=== PATIENT | male | born 1960 | race Caucasian/White ===

== ENCOUNTER → 2019-08-22 | Outpatient (REF) | payer OTHER ==
[2019-08-22 15:22] LABS: BASO # 0.1 10^3/uL (0.0-0.2); BASO % 0.9 % (0.0-1.0); EOS # 0.2 10^3/uL (0.0-0.5); EOS % 2.7 % (0.0-3.0); HEMATOCRIT 48.9 % (42.0-52.0); HEMOGLOBIN 15.8 g/dl (13.5-17.5); LYMPH # 1.8 10^3/uL (1.5-5.0); LYMPH % 31.9 % (24.0-44.0); MEAN CORPUSCULAR HEMOGLOBIN 28.4 pg (27.0-33.0); MEAN CORPUSCULAR HGB CONC 32.3 g/dl (32.0-36.5); MEAN CORPUSCULAR VOLUME 87.8 fl (80.0-96.0); MONO # 0.4 10^3/uL (0.0-0.8); MONO % 7.8 % (0.0-5.0); NEUTROPHILS # 3.2 10^3/uL (1.5-8.5); NEUTROPHILS % 55.8 % (36.0-66.0); PLATELET COUNT, AUTOMATED 301 10^3/uL (150-450); RED BLOOD COUNT 5.57 10^6/uL (4.30-6.10); WHITE BLOOD COUNT 5.7 10^3/uL (4.0-10.0)
[2019-08-22 15:37] LABS: HEMOGLOBIN A1c 5.8 %
[2019-08-22 16:03] LABS: ALBUMIN 4.1 GM/DL (3.2-5.2); ALT/SGPT 54 U/L (12-78); BILIRUBIN,TOTAL 0.5 MG/DL (0.2-1.0); BLOOD UREA NITROGEN 24 MG/DL (7-18); CALCIUM LEVEL 9.7 MG/DL (8.5-10.1); CARBON DIOXIDE LEVEL 26 MEQ/L (21-32); CHLORIDE LEVEL 106 MEQ/L (98-107); CHOLESTEROL LEVEL 220 MG/DL (<200); CHOLESTEROL RISK RATIO 5.641 (<5); GLOMERULAR FILTRATION RATE > 60.0 (>56); GLUCOSE, FASTING 107 MG/DL (70-100); HDL CHOLESTEROL 39 MG/DL (>40); LDL CHOLESTEROL 161 MG/DL (<100); NON-HDL-C 181 MG/DL; POTASSIUM SERUM 4.3 MEQ/L (3.5-5.1); SODIUM LEVEL 140 MEQ/L (136-145); THYROID STIMULATING HORMONE 0.763 uIU/ML (0.358-3.740); TOTAL 25(OH) VITAMIN D 22.4 NG/ML (30.0-100.0); TRIGLYCERIDES LEVEL 99 MG/DL (<150)
== END ==
LOC: M LAB REF 14:26
PROVIDERS: ATTEND Nurse Practitioner Family
DX: Z00.01 Encounter for general adult medical examination with abnormal findings (principal)

== ENCOUNTER 2019-09-16 07:47 | Day surgery (SDC) | payer OTHER ==
[~2019-09-16] VITALS: Ht 175.3 cm; Wt 110.1 kg
[~2019-09-16 07:47] MED LIST: LIDOCAINE 1% MDV 20ML VIAL SQ PRN; LR 1,000 ML IV ONE
[2019-09-16] MEDS ORDERED: PROPOFOL 200 MG/20 ML VIAL As Ordered ONE (08:27)
[2019-09-16] MEDS ORDERED: LIDOCAINE 2% INJ 100 MG/5 ML SDV (FOR ANES.) As Ordered ONE (08:27)
[2019-09-16] MEDS ORDERED: ROCURONIUM BROMIDE 50 MG/5 ML VIAL As Ordered ONE ×2 (08:27→10:24)
[2019-09-16] MEDS ORDERED: dexameTHASONE 4 MG/ML 1ML VIAL (J1100) As Ordered ONE (08:28)
[2019-09-16] MEDS ORDERED: ONDANSETRON 4MG/2ML VIAL (J2405) As Ordered ONE (08:28)
[2019-09-16] MEDS ORDERED: fentaNYL 100 MCG/2 ML INJECTION (J3010) As Ordered ONE ×2 (08:28→10:16)
[2019-09-16] MEDS ORDERED: MIDAZOLAM INJ 2 MG/2 ML VIAL (J2250) As Ordered ONE (08:28)
[2019-09-16] MEDS ORDERED: SUGAMMADEX SODIUM 500 MG/5 ML VIAL (BRIDION) As Ordered ONE (08:39)
[2019-09-16] MEDS ORDERED: BUPIVACAINE HCL 0.25% 30 ML VIAL As Ordered ONE (09:27)
[2019-09-16] MEDS: LR 1,000 ML IV SCH ×2 (11:47→12:06)
[2019-09-16] MEDS ORDERED: HYDROMORPHONE HCL 0.5 MG/ 0.5 ML SYRINGE (J1170 PER 1) IV PRN (12:00)
[2019-09-16] MEDS ORDERED: PERCOCET 5MG/325MG TAB PO PRN (12:00)
[2019-09-16] MEDS ORDERED: ONDANSETRON 4MG/2ML VIAL (J2405) IV PRN (12:00)
[2019-09-16] MEDS ORDERED: fentaNYL 100 MCG/2 ML INJECTION (J3010) IV PRN (12:00)
[2019-09-16] MEDS ORDERED: IBUPROFEN 600 MG TAB PO PRN (13:00)
[2019-09-16] MEDS ORDERED: ACETAMINOPHEN TAB 650MG DOSE (2X325MG) PO PRN (13:00)
[2019-09-16] MEDS ORDERED: NORCO, ANEXSIA 5/325MG TABLET (HYDROcodone/ACETAMINOPHEN) PO PRN (13:00)
[2019-09-16 13:35] VITALS: BP 120/69
--- NOTE | 2019-09-16 23:42 | RO ---
DATE OF PROCEDURE: 09/16/2019 PREOPERATIVE DIAGNOSIS: Epigastric ventral hernia. POSTOPERATIVE DIAGNOSIS: Epigastric ventral hernias. PROCEDURE PERFORMED: Robotic-assisted laparoscopic repair of ventral incisional hernia with mesh. SURGEON: Dr. Joe Hudson ODD JOB LABORER: BRIGIDA Carroll who assisted with trocar placement, management of robotic docking, instrument exchanges, placement of sutures and mesh, ,and ultimately closure of the incisions. ANESTHESIA: General. INDICATIONS FOR PROCEDURE: Patient is a 59-year-old man who has had a several year history anyway of an epigastric hernia. This is reducible but has become more uncomfortable. He is now for a robotic-assisted laparoscopic repair of his ventral hernia. DESCRIPTION OF PROCEDURE: The patient was brought to the operating room and placed on the table in a supine position. He was placed under general endotracheal anesthesia. The patient's abdomen was prepped and draped in a sterile fashion. 0.25% Marcaine was infiltrated at the trocar sites as needed. A short transverse left mid abdominal incision was made, and a Veress needle was inserted. After a positive hanging drop test, the abdomen was inflated with carbon dioxide gas. An 8 mm robotic port was placed over a 5 mm camera and advanced through the abdominal wall without difficulty. Initial examination showed normal appearing liver. There was some omentum adherent up into the area of his epigastric hernia. Two additional 8 mm trocars were placed on the left side of the abdomen. The patient cart was brought into position and the camera port was docked. Targeting took place and the additional ports were then docked as well. I proceeded using initially a Force bipolar and a cauterizing scissors. Initially the omentum was dissected away from the hernia defect. As this dissection proceeded, it became clear that the patient actually had two separate fascial defects with two small epigastric hernias. The one on the left was somewhat larger at approximately 1-1/2 to 2 cm in diameter and the defect to the right of the midline was approximately 1 to 1-1/2 cm in maximum diameter. Both contained some omental fat, which was partially incarcerated. Once the omentum had been freed into the abdomen, a flap of peritoneum and preperitoneal fat was elevated beginning on the left and working across. Both of the hernia sacs were freed and reduced into the abdomen. The two hernia defects were then closed with a running suture of #1-0 Stratafix. A 9 cm Parietex patch was then selected. This was reference code [id number] and lot number [id number]. This was inserted into the abdomen and placed into the preperitoneal space covering both defects very nicely. This was then sutured to the anterior abdominal wall using a #2-0 V-Loc around the circumference. This gave nice apposition of the mesh to the anterior abdominal wall. The peritoneal flap was then closed with a running suture of #2-0 V-Loc as well. The patient tolerated the procedure well without apparent complication. The abdomen was deflated after removal of the robotic instruments and the trocars were then removed. Lora Esquivel then moved to close the skin incisions with sutures and Steri-Strips. Light dressings were applied. The patient tolerated the procedure well. He was awakened in the operating room, extubated and moved to the recovery room in stable condition. Edited 09/16/2019 john
== END 2019-09-16 13:35 | disposition home or self-care (01) ==
LOC: M SDC 07:47
PROVIDERS: ATTEND Surgery
DX: K43.9 Ventral hernia without obstruction or gangrene (principal)
CPT/HCPCS: 49652; C1781; J1100; J2250; J2405; J3010

== ENCOUNTER → 2020-04-15 | Outpatient (CLI) | payer OTHER ==
--- NOTE | 2020-04-16 03:20 | REP ---
Clinical: Swelling. Technique: Real time mar scale and color evaluation using linear high frequency transducer. Findings: Ultrasound examination along the neck demonstrates few normal appearing lymph nodes measuring up to 9 x 6 x 7 mm on the right and 16 x 3 x 8 mm on the left. Impression: Normal bilateral lymph nodes. No significant swelling. Electronically Signed by Josue Crocker MD 04/16/2020 03:12 A
== END ==
LOC: M RAD 16:02
PROVIDERS: ATTEND Physician Assistant
DX: M79.89 Other specified soft tissue disorders (principal)

== ENCOUNTER → 2020-04-23 | Outpatient (REF) | payer OTHER, MEDICAID ==
[2020-04-23 12:32] LABS: BASO % 0.7 % (0.0-1.0); EOS # 0.2 10^3/uL (0.0-0.5); EOS % 3.8 % (0.0-3.0); HEMATOCRIT 46.4 % (42.0-52.0); HEMOGLOBIN 14.8 g/dl (13.5-17.5); LYMPH # 1.9 10^3/uL (1.5-5.0); LYMPH % 31.6 % (24.0-44.0); MEAN CORPUSCULAR HEMOGLOBIN 28.3 pg (27.0-33.0); MEAN CORPUSCULAR HGB CONC 31.9 g/dl (32.0-36.5); MEAN CORPUSCULAR VOLUME 88.7 fl (80.0-96.0); MONO # 0.5 10^3/uL (0.0-0.8); MONO % 8.8 % (0.0-5.0); NEUTROPHILS # 3.3 10^3/uL (1.5-8.5); NEUTROPHILS % 54.6 % (36.0-66.0); PLATELET COUNT, AUTOMATED 270 10^3/uL (150-450); RED BLOOD COUNT 5.23 10^6/uL (4.30-6.10)
[2020-04-23 12:40] LABS: ALBUMIN 3.8 GM/DL (3.2-5.2); ALT/SGPT 66 U/L (12-78); BILIRUBIN,TOTAL 0.6 MG/DL (0.2-1.0); BLOOD UREA NITROGEN 22 MG/DL (7-18); CARBON DIOXIDE LEVEL 26 MEQ/L (21-32); CHLORIDE LEVEL 107 MEQ/L (98-107); CHOLESTEROL LEVEL 178 MG/DL (<200); CHOLESTEROL RISK RATIO 5.085 (<5); CREATININE FOR GFR 0.69 MG/DL (0.70-1.30); FREE T4 0.94 NG/DL (0.76-1.46); GLOMERULAR FILTRATION RATE > 60.0 (>56); GLUCOSE, FASTING 97 MG/DL (70-100); HDL CHOLESTEROL 35 MG/DL (>40); LDL CHOLESTEROL 121 MG/DL (<100); NON-HDL-C 143 MG/DL; POTASSIUM SERUM 4.1 MEQ/L (3.5-5.1); SODIUM LEVEL 139 MEQ/L (136-145); THYROID STIMULATING HORMONE 0.823 uIU/ML (0.358-3.740); TOTAL PROTEIN 7.2 GM/DL (6.4-8.2); TRIGLYCERIDES LEVEL 111 MG/DL (<150)
[2020-04-23 13:20] LABS: HEMOGLOBIN A1c 6.1 %
== END ==
LOC: M LAB REF 12:04
PROVIDERS: ATTEND Physician Assistant
DX: Z68.41 Body mass index [BMI] 40.0-44.9, adult (principal); E66.01 Morbid (severe) obesity due to excess calories; E78.5 Hyperlipidemia, unspecified; R73.03 Prediabetes

== ENCOUNTER → 2020-09-30 | Outpatient (REF) | payer OTHER, MEDICAID ==
[2020-09-30 13:13] LABS: BASO # 0.1 10^3/uL (0.0-0.2); BASO % 0.8 % (0.0-1.0); EOS # 0.2 10^3/uL (0.0-0.5); EOS % 2.6 % (0.0-3.0); HEMATOCRIT 48.4 % (42.0-52.0); HEMOGLOBIN 15.1 g/dl (13.5-17.5); LYMPH % 32.3 % (24.0-44.0); MEAN CORPUSCULAR HEMOGLOBIN 27.7 pg (27.0-33.0); MEAN CORPUSCULAR HGB CONC 31.2 g/dl (32.0-36.5); MEAN CORPUSCULAR VOLUME 88.8 fl (80.0-96.0); MONO # 0.6 10^3/uL (0.0-0.8); MONO % 9.2 % (0.0-5.0); NEUTROPHILS # 3.3 10^3/uL (1.5-8.5); NEUTROPHILS % 54.4 % (36.0-66.0); PLATELET COUNT, AUTOMATED 282 10^3/uL (150-450); RED BLOOD COUNT 5.45 10^6/uL (4.30-6.10); WHITE BLOOD COUNT 6.1 10^3/uL (4.0-10.0)
[2020-09-30 13:46] LABS: ALBUMIN 3.8 GM/DL (3.2-5.2); ALT/SGPT 54 U/L (12-78); BILIRUBIN,TOTAL 0.4 MG/DL (0.2-1.0); BLOOD UREA NITROGEN 15 MG/DL (7-18); CALCIUM LEVEL 9.5 MG/DL (8.5-10.1); CARBON DIOXIDE LEVEL 29 MEQ/L (21-32); CHLORIDE LEVEL 105 MEQ/L (98-107); CHOLESTEROL LEVEL 221 MG/DL (<200); CHOLESTEROL RISK RATIO 6.138 (<5); GLOMERULAR FILTRATION RATE > 60.0 (>56); GLUCOSE, FASTING 88 MG/DL (70-100); HDL CHOLESTEROL 36 MG/DL (>40); LDL CHOLESTEROL 158 MG/DL (<100); NON-HDL-C 185 MG/DL; POTASSIUM SERUM 4.5 MEQ/L (3.5-5.1); PROSTATIC SPECIFIC AG MONITOR 1.32 NG/ML (< 4.00); SODIUM LEVEL 138 MEQ/L (136-145); TOTAL 25(OH) VITAMIN D 19.3 NG/ML (30.0-100.0); TOTAL PROTEIN 7.3 GM/DL (6.4-8.2); TRIGLYCERIDES LEVEL 137 MG/DL (<150)
[2020-09-30 16:31] LABS: HEMOGLOBIN A1c 5.5 %
== END ==
LOC: M LAB REF 12:19
PROVIDERS: ATTEND Nurse Practitioner Family
DX: E78.5 Hyperlipidemia, unspecified (principal); K92.1 Melena; R73.03 Prediabetes

== ENCOUNTER → 2020-11-21 | Outpatient (CLI) | payer OTHER, MEDICAID ==
[~2020-11-21] MED LIST changes: -LIDOCAINE 1% MDV 20ML VIAL SQ PRN; -LR 1,000 ML IV ONE; +VITA50005
== END ==
LOC: M LABSMTC 09:36
PROVIDERS: ATTEND Anesthesiology
DX: Z01.812 Encounter for preprocedural laboratory examination (principal); Z20.822 Contact with and (suspected) exposure to COVID-19

== ENCOUNTER 2020-11-26 07:29 | Day surgery (SDC) | payer OTHER ==
[~2020-11-26] VITALS: Ht 175.3 cm; Wt 109.2 kg
[~2020-11-26 07:29] MED LIST changes: +NS 1,000 ML IV ONE
--- OUTSIDE RECORDS SUMMARY | 2020-11-26 07:34 | CCD ---
Author Organization Unknown Address [address] [place] [id number] Phone [phone] Care Team Providers Care Polishing Machine Operator Helper Name Role Phone Siria Hare Unavailable Unavailable Allergies Code Code System Name Reaction Severity Status Onset NKDA Medications Name Status Start Date Stop Date mupirocin 2 % topical ointment APPLY A SMALL AMOUNT TO AFFECTED AREA S THREE TIMES A DAY Active Not available sulfamethoxazole 800 mg-trimethoprim 160 mg tablet TAKE ONE TABLET BY MOUTH EVERY 12 HOURS FOR 7 DAYS Completed 10/18/2020 Vitamin D2 1,250 mcg (50,000 unit) capsu le Take 1 capsule every week by oral route as directed. 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 History Finding of Body Mass Index Active 03/15/2020 Histo ry Melena Active 06/11/2020 History Cellulitis of Buttock Active 06/11/2020 History Screening Procedure Active 06/11/2020 History Vitamin D Deficiency Active 10/20/2020 Procedures Date Name Performed by 09/12/2019 Repair of Ventral Hernia Information not available Vasectomy Information not avai lable Tonsillectomy Information not avai lable Notes: Tonsillectomy, vasectomy, ventral hernia repair 09/2019 Results Lab Results Date Name Specimen Result Interpretation Description Value Range Status Address 09/30/2020 CBC W/ Auto Diff Normal White Blood Count 6.1 10 4.0-10.0 10 [facility]: [address] [facility] Normal Red Blood Count 5.45 10 4.30-6.10 10 [facility]: [address] [facility] Normal Hemoglobin 15.1 g/dL 13.5-17.5 g/dL [facility]: [address] [facility] Normal Hematocrit 48.4 % 42.0-52.0 % [facility]: [address] [facility] Normal Mean Corpuscular Volume 88.8 fL 80.0 -96.0 fL Final [facility]: [address] [place] [address] Normal Mean Corpuscular Hemoglobin 27.7 pg 27.0-33.0 pg Final [facility]: [address] [place] [address] Low Mean Corpuscular HGB Conc 31.2 g/dL 32.0-36.5 g/dL Final [facility]: [address] [place] [address] Normal Red Cell Distribution Width 13.4 % 1 1.5-14.5 % [facility]: [address] [place] [address] Normal Platelet Count, Automated 282 10 150 -450 10 [facility]: [address] [facility] Normal Neutrophils % 54.4 % 36.0-66.0 % [facility]: [address] [facility] Normal Lymph % 32.3 % 24.0-44.0 % Final [facility]: [address] [facility] High [place]kin % 9.2 % 0.0-5.0 % Final [facility]: [address] [facility] Normal Eos % 2.6 % 0.0-3.0 % [facility]: [address] [facility] Normal Baso % 0.8 % 0.0-1.0 % Final [facility]: [address] [facility] Normal Immature Granulocyte % 0.7 % 0-3.0 % [facility]: [address] [place] [address] Normal Nucleated Red Blood Cell % 0.0 % 0- 0 % [facility]: [address] [facility] Normal Neutrophils # 3.3 10 1.5-8.5 10 [facility]: [address] [facility] Normal Lymph # 2.0 10 1.5-5.0 10 [facility]: [address] [facility] Normal [place]kin # 0.6 10 0.0-0.8 10 Final [facility]: [address] [facility] Normal Eos # 0.2 10 0.0-0.5 10 [facility]: [address] [facility] Normal Baso # 0.1 10 0.0-0.2 10 [facility]: [address] [facility] 09/30/2020 CMP, Serum or Plasma Normal Glucose, Fastin g 88 mg/dL 70-100 mg/dL [facility]: [address] [facility] Normal Blood Urea Nitrogen 15 mg/dL 7-18 mg /dL [facility]: [address] [facility] Normal Creatinine for GFR 0.80 mg/dL 0.70-1 .30 mg/dL [facility]: [address] [facility] Normal Glomerular Filtration Rate > 60.0 >5 6 [facility]: [address] [facility] Normal Sodium Level 138 mEq/L 136-145 mEq/L [facility]: [address] [facility] Normal Potassium Serum 4.5 mEq/L 3.5-5.1 mE q/L [facility]: [address] [facility] Normal Chloride Level 105 mEq/L 98-107 mEq/ L [facility]: [address] [facility] Normal Carbon Dioxide Level 29 mEq/L 21-32 mEq/L [facility]: [address] [facility] Low Anion Gap 4 mEq/L 8-16 mEq/L [facility]: [address] [facility] Normal Calcium Level 9.5 mg/dL 8.5-10.1 mg/ dL [facility]: [address] [facility] Normal AST/SGOT 21 U/L 7-37 U/L [facility]: [address] [facility] Normal ALT/SGPT 54 U/L 12-78 U/L [facility]: [address] [facility] Normal Alkaline Phosphatase 67 U/L 45-117 U /L [facility]: [address] [facility] Normal Bilirubin,total 0.4 mg/dL 0.2-1.0 mg /dL [facility]: [address] [facility] Normal Total Protein 7.3 gm/dL 6.4-8.2 gm/d L [facility]: [address] [facility] Normal Albumin 3.8 gm/dL 3.2-5.2 gm/dL Nataliya l [facility]: [address] [facility] Normal Albumin/globulin Ratio 1.1 [facility]: [address] [facility] 09/30/2020 Lipid Panel, Blood Normal Triglycerides Lev el 137 mg/dL <150 mg/dL [facility]: [address] [facility] High Cholesterol Level 221 mg/dL <200 mg/ dL [facility]: [address] [facility] Low HDL Cholesterol 36 mg/dL >40 mg/dL [facility]: [address] [facility] High LDL Cholesterol 158 mg/dL <100 mg/dL [facility]: [address] [facility] Normal Non-hdl-c 185 mg/dL [facility]: [address] [facility] High Cholesterol Risk Ratio 6.138 <5 [facility]: [address] [facility] 09/30/2020 PSA, Serum or Plasma Normal Prostat ic Specific Ag Monitor 1.32 NG/mL < 4.00 NG/mL [facility]: [address] [facility] 09/30/2020 TSH + Free T4, Serum Normal Thyroid Stimulating Hormone 1.090 uIU/mL 0.358-3.740 uIU/mL [facility]: [address] [facility] Normal Free T4 1.00 NG/dL 0.76-1.46 NG/dL F [facility]: [address] [facility] 09/30/2020 Vitamin D, 25-Hydroxy, Total, Serum Low Total 25(Oh) Vitamin D 19.3 NG/mL 30.0-100.0 NG/mL [facility]: [address] [facility] 09/30/2020 HbA1C (Hemoglobin a1C), Blood Normal Hemogl obin a1C 5.5 % Final [facility]: [address] [facility] High Estimated Average Glucose 111 mg/dL 60-110 mg/dL Final [facility]: [address] [facility] Past Encounters 10/18/2020 Patient Asked to Attend; Hyperlipidemia; Vitamin D Deficiency Siria Hare [facility]: [address] [place] [phone], Ph. 09/30/2020 Patient Asked to Attend; Hyperlipidemia Frederick Lucio MD: [address] [place] [address], Ph. 09/09/2020 Abscess of Skin And/or Subcutaneous Tissue; Screening for Malignant Neoplasm of Colon; Hyperlipidemia; Adult Health Examination; Prediabetes; Melena; Impacted Cerumen of Bilateral Ears Siria Hare [facility]: [address] [place] [phone], Ph. Social History Tobacco Smoking Status Former Smoker Vaccine List Notes: Pt declined Flu vaccine Plan of Care Patient Instructions Please try to maintain healthy diet and physical activities. Please try to limit sugars carbohydrates, sodium and fats in your diet. Please try to avoid processed foods. please try to maintain adequate intake of water daily. Annual physical exam done today. labs o rdered, please return to have la bs done. Please fast for 8-10 hours prior. Reminders Provider Appointments None recorded. Lab None recorded. Referral None recorded. Procedures None recorded. Surgeries None recorded. Imaging None recorded. Vitals 10/18/2020 04:20PM ESTABLISHED [id number] Height Weight BMI Blood Pressure 69 in 243 lbs 35.9 kg/m2 124/83 mm[Hg] 09/09/2020 01:00PM ANNUAL EXAM Height Weight BMI Blood Pressure 69 in 239 lbs 4 oz 35.3 kg/m2 121/74 mm[Hg] 06/11/2020 Height Weight Blood Pressure 69 in 239 lbs 8 oz 133/79 mm[Hg] 03/15/2020 Height Weight Blood Pressure 69 in 249 lbs 3.2 oz 123/80 mm[Hg] 09/05/2019 Height Weight Blood Pressure 69 in 242 lbs 2.08 oz 136/89 mm[Hg] 08/05/2019 Height Weight Blood Pressure 69 in 244 lbs 130/73 mm[Hg]
--- OUTSIDE RECORDS SUMMARY | 2020-11-26 07:34 | CCD | Continuity of Care Document ---
Author Author [facility] Organization Unknown Address [address] [place] [address], [address] [place] [address] Phone [phone] Care Team Providers Care Sap Crm Developer Name Role Phone Mike Corcoran M.D. AUTM [phone] Flaquito Dixon AUTM [phone] Siria Hare AUTM Problems Description No Active Problems Social History Type Date Description Comments Sex Unknown ETOH Use Denies alcohol use Tobacco Use Start: Unknown End: Unknown Patient is a former smoker QUIT 1993 Recreational Drug Use Denies Drug Use Allergies, Adverse Reactions, Alerts Description No Known Drug Allergies Medications Active Medications SIG Qnty Indications Ordering Provide r Date Miralax 17GM/Scoop Powder use as instructed by doctor for bowel prep. 510gm Z12.11 Mike mora MD 10/20/[address] take 4 tabs by mouth prior to procedure per instructions. 4tabs Z12.11 Mike Mansfield MD 10/20/2020 Immunizations Description No Information Available Vital Signs Date Vital Result Comment 10/20/2020 1:27pm BP Systolic 130 mmHg BP Diastolic 84 mmHg Height 69 inches 5'9" Weight 241.00 lb BMI (Body Mass Index) 35.6 kg/m2 [place] Body Weight 160 lb Weight 109.318 kg BSA (Body Surface Area) 2.24 m2 09/29/2019 10:17am BP Systolic 122 mmHg BP Diastolic 84 mmHg Height 69 inches 5'9" Weight 238.56 lb BMI (Body Mass Index) 35.2 kg/m2 [place] Body Weight 160 lb Weight 108.212 kg BSA (Body Surface Area) 2.23 m2 Results Description No Information Available Procedures Description No Information Available Medical Devices Description No Information Available Encounters Description No Information Available Assessments Date Code Description Provider 10/20/2020 Z12.11 Encounter for screening for mary gnant neoplasm of colon SUZAN Matthew Plan of Treatment 10/20/2020 - Sommer Janina SUZAN Jimenez* Z12.11 Encounter for screening for malignant neoplasm of colon * * New Medication:* Miralax 17 GM/Scoop * Dulcolax 5 mg * New Orders:* Colonoscopy, Ordered: 10/20/20 * Comments:* Will arrange for colonoscopy. Reviewed risks and benefits of the procedure, as well as other options, with the patient. Bowel prep procedure was discussed with patient, as well as risks and side effects associated with the bowel prep. Patient verbalized understanding of all of the above and is in agreement to proceed. Patient will seek medical attention for any acute changes. Will monitor. * Follow up:* As scheduled, sooner if needed. Functional Status Description No Information Available Mental Status Description No Information Available Referrals Refer to Reason for Referral Status Appt Date Soto Santiago M.D. SCREENING FOR MALIGNANT CHARLIE PLASM OF COLON, HEMATOCHEZIA Scheduled 10/20/[address] [place] [address], [address] [place] [address] [phone]
--- OUTSIDE RECORDS SUMMARY | 2020-11-26 07:34 | CCD ---
Author Author [facility] Organization [facility] Address Unknown Phone Unavailable Care Team Providers Care Foreman Or Supervisor And Operator Name Role Phone Arpita Lucio MD Unavailable Unavailable Arpita Lucio MD Unavailable Unavailable Arpita Lucio MD Unavailable Unavailable Arpita Lucio MD Unavailable Unavailable Arpita Lucio MD Unavailable Unavailable Arpita Lucio MD Unavailable Unavailable Arpita Lucio MD Unavailable Unavailable Arpita Lucio MD Unavailable Unavailable Arpita Lucio MD Unavailable Unavailable Arpita Lucio MD Unavailable Unavailable Arpita Lucio MD Unavailable Unavailable Arpita Lucio MD Unavailable Unavailable Arpita Lucio MD Unavailable Unavailable Arpita Lucio MD Unavailable Unavailable Arpita Lucio MD Unavailable Unavailable Arpita Lucio MD Unavailable Unavailable Arpita Lucio MD Unavailable Unavailable Arpita Lucio MD Unavailable Unavailable Arpita Lucio MD Unavailable Unavailable Arpita Lucio MD Unavailable Unavailable Arpita Lucio MD Unavailable Unavailable Arpita Lucio MD Unavailable Unavailable Arpita Lucio MD Unavailable Unavailable Arpita Lucio MD Unavailable Unavailable Arpita Lucio MD Unavailable Unavailable Arpita Lucio MD Unavailable Unavailable Arpita Lucio MD Unavailable Unavailable Arpita Lucio MD Unavailable Unavailable Arpita Lucio MD Unavailable Unavailable Arpita Lucio MD Unavailable Unavailable Arpita Lucio MD Unavailable Unavailable Arpita Lucio MD Unavailable Unavailable Arpita Lucio MD Unavailable Unavailable Arpita Lucio MD Unavailable Unavailable Arpita Lucio MD Unavailable Unavailable Arpita Lucio MD Unavailable Unavailable Arpita Lucio MD Unavailable Unavailable Arpita Lucio MD Unavailable Unavailable Arpita Lucio MD Unavailable Unavailable Arpita Lucio MD Unavailable Unavailable Arpita Lucio MD Unavailable Unavailable Arpita Lucio MD Unavailable Unavailable Arpita Lucio MD Unavailable Unavailable Arpita Lucio MD Unavailable Unavailable Arpita Lucio MD Unavailable Unavailable Arpita Lucio MD Unavailable Unavailable Arpita Lucio MD Unavailable Unavailable Arpita Lucio MD Unavailable Unavailable Arpita Lucio MD Unavailable Unavailable Arpita Lucio MD Unavailable Unavailable Arpita Lucio MD Unavailable Unavailable Arpita Lucio MD Unavailable Unavailable Arpita Lucio MD Unavailable Unavailable Arpita Lucio MD Unavailable Unavailable Arpita Lucio MD Unavailable Unavailable Arpita Lucio MD Unavailable Unavailable Arpita Lucio MD Unavailable Unavailable Arpita Lucio MD Unavailable Unavailable Arpita Lucio MD Unavailable Unavailable Arpita Lucio MD Unavailable Unavailable Arpita Lucio MD Unavailable Unavailable Arpita Lucio MD Unavailable Unavailable Arpita Lucio MD Unavailable Unavailable Arpita Lucio MD Unavailable Unavailable Arpita Lucio MD Unavailable Unavailable Arpita Lucio MD Unavailable Unavailable Arpita Lucio MD Unavailable Unavailable Arpita Lucio MD Unavailable Unavailable Arpita Lucio MD Unavailable Unavailable Arpita Lucio MD Unavailable Unavailable Arpita Lucio MD Unavailable Unavailable Arpita Lucio MD Unavailable Unavailable Arpita Lucio MD Unavailable Unavailable Arpita Lucio MD Unavailable Unavailable Arpita Lucio MD Unavailable Unavailable Arpita Lucio MD Unavailable Unavailable Arpita Lucio MD Unavailable Unavailable Arpita Lucio MD Unavailable Unavailable Arpita Lucio MD Unavailable Unavailable Arpita Lucio MD Unavailable Unavailable Arpita Lucio MD Unavailable Unavailable Arpita Lucio MD Unavailable Unavailable Arpita Lucio MD Unavailable Unavailable Arpita Lucio MD Unavailable Unavailable Arpita Lucio MD Unavailable Unavailable Arpita Lucio MD Unavailable Unavailable Arpita Lucio MD Unavailable Unavailable Arpita Lucio MD Unavailable Unavailable Arpita Lucio MD Unavailable Unavailable Payam, A Siria VEGETABLE HARVEST MACHINE OPERATOR Unavailable Unavailable Payam, A Isria VEGETABLE HARVEST MACHINE OPERATOR Unavailable Unavailable Payam, A Siria VEGETABLE HARVEST MACHINE OPERATOR Unavailable Unavailable Payam, A Siria VEGETABLE HARVEST MACHINE OPERATOR Unavailable Unavailable Payam, A Siria VEGETABLE HARVEST MACHINE OPERATOR Unavailable Unavailable Payam, A Siria VEGETABLE HARVEST MACHINE OPERATOR Unavailable Unavailable Payam, A Siria VEGETABLE HARVEST MACHINE OPERATOR Unavailable Unavailable Payam, A Siria VEGETABLE HARVEST MACHINE OPERATOR Unavailable Unavailable Payam, A Siria VEGETABLE HARVEST MACHINE OPERATOR Unavailable Unavailable Payam, A Siria VEGETABLE HARVEST MACHINE OPERATOR Unavailable Unavailable Purvis, A Siria VEGETABLE HARVEST MACHINE OPERATOR Unavailable Unavailable Purvis, A Siria VEGETABLE HARVEST MACHINE OPERATOR Unavailable Unavailable Purvis, A Siria VEGETABLE HARVEST MACHINE OPERATOR Unavailable Unavailable Purvis, A Siria VEGETABLE HARVEST MACHINE OPERATOR Unavailable Unavailable Purvis, A Siria VEGETABLE HARVEST MACHINE OPERATOR Unavailable Unavailable Payam, A Siria VEGETABLE HARVEST MACHINE OPERATOR Unavailable Unavailable Payam, A Siria VEGETABLE HARVEST MACHINE OPERATOR Unavailable Unavailable Purvis, A Siria VEGETABLE HARVEST MACHINE OPERATOR Unavailable Unavailable Purvis, A Siria VEGETABLE HARVEST MACHINE OPERATOR Unavailable Unavailable Purvis, A Siria VEGETABLE HARVEST MACHINE OPERATOR Unavailable Unavailable Purvis, A Siria VEGETABLE HARVEST MACHINE OPERATOR Unavailable Unavailable Purvis, A Siria VEGETABLE HARVEST MACHINE OPERATOR Unavailable Unavailable Purvis, A Siria VEGETABLE HARVEST MACHINE OPERATOR Unavailable Unavailable Payam, A Siria VEGETABLE HARVEST MACHINE OPERATOR Unavailable Unavailable Payam, A Siria VEGETABLE HARVEST MACHINE OPERATOR Unavailable Unavailable Payam, A Siria VEGETABLE HARVEST MACHINE OPERATOR Unavailable Unavailable Payam, A Siria VEGETABLE HARVEST MACHINE OPERATOR Unavailable Unavailable Silveira, Roya VEGETABLE HARVEST MACHINE OPERATOR VEGETABLE HARVEST MACHINE OPERATOR Unavailable Unavailable Silveira, F Roya VEGETABLE HARVEST MACHINE OPERATOR-BC Unavailable Unavailable Silveira, F Roya VEGETABLE HARVEST MACHINE OPERATOR-BC Unavailable Unavailable Silveira, F Roya VEGETABLE HARVEST MACHINE OPERATOR-BC Unavailable Unavailable Silveira, F Roya VEGETABLE HARVEST MACHINE OPERATOR-BC Unavailable Unavailable Silveira, F Roya VEGETABLE HARVEST MACHINE OPERATOR-BC Unavailable Unavailable Silveira, F Roya VEGETABLE HARVEST MACHINE OPERATOR-BC Unavailable Unavailable Silveira, F Roya VEGETABLE HARVEST MACHINE OPERATOR-BC Unavailable Unavailable Silveira, F Roya VEGETABLE HARVEST MACHINE OPERATOR-BC Unavailable Unavailable Silveira, F Roya VEGETABLE HARVEST MACHINE OPERATOR-BC Unavailable Unavailable Silveira, F Roya VEGETABLE HARVEST MACHINE OPERATOR-BC Unavailable Unavailable Silveira, F Roya VEGETABLE HARVEST MACHINE OPERATOR-BC Unavailable Unavailable Silveira, F Roya VEGETABLE HARVEST MACHINE OPERATOR-BC Unavailable Unavailable Silveira, F Roya VEGETABLE HARVEST MACHINE OPERATOR-BC Unavailable Unavailable Silveira, F Roya VEGETABLE HARVEST MACHINE OPERATOR-BC Unavailable Unavailable Silveira, F Roya VEGETABLE HARVEST MACHINE OPERATOR-BC Unavailable Unavailable Silveira, F Roya VEGETABLE HARVEST MACHINE OPERATOR-BC Unavailable Unavailable Silveira, F Roya VEGETABLE HARVEST MACHINE OPERATOR-BC Unavailable Unavailable Silveira, F Roya VEGETABLE HARVEST MACHINE OPERATOR-BC Unavailable Unavailable Silveira, F Roya VEGETABLE HARVEST MACHINE OPERATOR-BC Unavailable Unavailable Silveira, F Roya VEGETABLE HARVEST MACHINE OPERATOR-BC Unavailable Unavailable Silveira, F Roya VEGETABLE HARVEST MACHINE OPERATOR-BC Unavailable Unavailable STEELE, YANICK FLAQUITO RPA-C Unavailable Unavailable STEELE, YANICK FLAQUITO RPA-C Unavailable Unavailable STEELE, YANICK FLAQUITO RPA-C Unavailable Unavailable STEELE, YANICK FLAQUITO RPA-C Unavailable Unavailable STEELE, YANICK FLAQUITO RPA-C Unavailable Unavailable STEELE, YANICK FLAQUITO RPA-C Unavailable Unavailable STEELE, YANICK FLAQUITO RPA-C Unavailable Unavailable STEELE, YANICK FLAQUITO RPA-C Unavailable Unavailable STEELE, YANICK FLAQUITO RPA-C Unavailable Unavailable STEELE, YANICK FLAQUITO RPA-C Unavailable Unavailable STEELE, YANICK FLAQUITO RPA-C Unavailable Unavailable STEELE, YANICK FLAQUITO RPA-C Unavailable Unavailable STEELE, YANICK FLAQUITO RPA-C Unavailable Unavailable STEELE, YANICK FLAQUITO RPA-C Unavailable Unavailable STEELE, YANICK FLAQUITO RPA-C Unavailable Unavailable STEELE, YANICK FLAQUITO RPA-C Unavailable Unavailable STEELE, YANICK FLAQUITO RPA-C Unavailable Unavailable STEELE, YANICK FLAQUITO RPA-C Unavailable Unavailable STEELE, YANICK FLAQUITO RPA-C Unavailable Unavailable STEELE, YANICK FLAQUITO RPA-C Unavailable Unavailable STEELE, YANICK FLAQUITO RPA-C Unavailable Unavailable STEELE, YANICK FLAQUITO RPA-C Unavailable Unavailable STEELE, YANICK FLAQUITO RPA-C Unavailable Unavailable STEELE, YANICK FLAQUITO RPA-C Unavailable Unavailable STEELE, YANICK FLAQUITO RPA-C Unavailable Unavailable STEELE, YANICK FLAQUITO RPA-C Unavailable Unavailable STEELE, YANICK FLAQUITO RPA-C Unavailable Unavailable STEELE, YANICK FLAQUITO RPA-C Unavailable Unavailable STEELE, YANICK FLAQUITO RPA-C Unavailable Unavailable STEELE, YANICK FLAQUITO RPA-C Unavailable Unavailable STEELE, YANICK FLAQUITO RPA-C Unavailable Unavailable STEELE, YANICK FLAQUITO RPA-C Unavailable Unavailable STEELE, YANICK FLAQUITO RPA-C Unavailable Unavailable STEELE, YANICK FLAQUITO RPA-C Unavailable Unavailable STEELE, YANICK FLAQUITO RPA-C Unavailable Unavailable STEELE, YANICK FLAQUITO RPA-C Unavailable Unavailable STEELE, YANICK FLAQUITO RPA-C Unavailable Unavailable STEELE, YANICK FLAQUITO RPA-C Unavailable Unavailable STEELE, YANICK FLAQUITO RPA-C Unavailable Unavailable [facility], [facility] STEE[facility] FLAQUITO Unavailable Unavailable Re-disclosure Warning The records that you are about to access may contain information from federally-assisted alcohol or drug abuse programs. If such information is present, then the following federally mandated warning applies: This information has been disclosed to you from records protected by federal confidentiality rules (42 CFR part 2). The federal rules prohibit you from making any further disclosure of this information unless further disclosure is expressly permitted by the written consent of the person to whom it pertains or as otherwise permitted by 42 CFR part 2. A general authorization for the release of medical or other information is NOT sufficient for this purpose. The Federal rules restrict any use of the information to criminally investigate or prosecute any alcohol or drug abuse patient.The records that you are about to access may contain highly sensitive health information, the redisclosure of which is protected by Article 27-F of the [facility] Public Health law. If you continue you may have access to information: Regarding HIV / AIDS; Provided by facilities licensed or operated by the [facility] Office of Mental Health; or Provided by the [facility] Office for People With Developmental Disabilities. If such information is present, then the following [facility] mandated warning applies: This information has been disclosed to you from confidential records which are protected by state law. State law prohibits you from making any further disclosure of this information without the specific written consent of the person to whom it pertains, or as otherwise permitted by law. Any unauthorized further disclosure in violation of state law may result in a fine or fdc sentence or both. A general authorization for the release of medical or other information is NOT sufficient authorization for further disc losure. Family History Family Member Name Family Member Gender Family Member Status Date o f Status Description Data Source(s) Unknown Female Problem [facility] ([facility], ) Encounters Encounter Providers Location Date Indications Data Source(s ) [facility] [address] [place] [address], Ph. Attender: Siria Hare [facility] Medical 10/18/2020 12:00:00 AM EST Procedure by Method [facility] ([facility]) Procedure by Elvira Lucio MD: [address] [place] [address], Ph. Attender: Frederick Lucio MD [facility] Medical 09/30/2020 12:00:00 AM EST [facility] ([facility]) [facility] [address] [place] [address], Ph. Attender: Siria NJP [facility] Medical 09/09/2020 12:00:00 AM EDT [facility] ([facility]) ENEIDA Stevenson: [address] [facility] [place] [address], Ph. Attender: Siria ALLRED [facility] Medical 09/09/2020 12:00:00 AM EDT [facility] ([facility]) Outpatient Attender: Roya MONIQUE 06/28/2020 08: 52:00 AM EDT [facility] Outpatient Attender: BRIGIDA SO 06/11/2020 09:06:02 AM EDT [facility] Outpatient Attender: BRIGIDA ALLRED FP 05/28/2020 03:08:00 PM EDT [facility] Outpatient Attender: BRIGIDA ALLRED FP 05/11/2020 04:22:03 PM EDT [facility] Outpatient Attender: Roya MONIQUE FP 05/11/2020 04: 22:02 PM EDT [facility] Outpatient 04/28/2020 05:17:00 AM EDT [facility] Outpatient Attender: Roya SO 04/23/2020 10: 18:00 AM EDT [facility] Outpatient Attender: BRIGIDA ALLRED FP 04/23/2020 09:43:00 AM EDT [facility] Outpatient Attender: BRIGIDA ALLRED FP 04/07/2020 09:28:00 AM EDT [facility] Outpatient Attender: BRIGIDA SO 03/29/2020 02:23:01 PM EDT [facility] Outpatient Attender: Roya MONIQUE FP 03/29/2020 08: 42:00 AM EDT [facility] Outpatient Attender: BRIGIDA ALLRED FP 03/24/2020 02:42:00 PM EDT [facility] Outpatient Attender: RORY FORDE [facility] 03/12 11:38:02 AM EDT [facility] Outpatient Attender: FLAQUITO MARES [facility] 03/15/2020 01:24:00 PM EDT [facility] Outpatient Attender: BRIGIDA SO 03/08/2020 01:57:01 PM EDT [facility] Medications Medication Brand Name Start Date Product Form Dose Route Admi nistrative Instructions Pharmacy Instructions Status Indications Reaction Description Data Source(s) 1,250 mcg (50,000 unit) 11/02/2020 12:00:00 AM EST capsule 4 TAKE ONE CAPSULE BY MOUTH WEEKLY DIRECTED TAKE ONE CAPSULE BY MOUTH WEEKLY DIRE CTED SOLD: 11/02/2020 [facility] 17 gram/dose 11/02/2020 12:00:00 AM EST powder 510 USE DIRECTED BY DOCTOR FOR BOWEL PREP USE DIRECTED BY DOCTOR FOR BOWEL PREP SOLD: 11/02/2020 [facility] POLYETHYLENE GLYCOL 3350 142 MG/ML Oral Solution [Miralax] M iralax 10/20/2020 12:00:00 AM EST active M [facility] ([facility], ) Bisacodyl 5 MG Delayed Release Oral Tablet [Dulcolax] Dulcol ax 10/20/2020 12:00:00 AM EST ORAL active M [facility] ([facility], ) 2 % 09/09/2020 12:00:00 AM EDT ointment 22 APPLY A SMALL AMOUNT TO AFFECTED AREA(S) THREE TIMES A DAY APPLY A SMALL AMOUNT TO AFFECTED AREA(S) THREE TIMES A DAY SOLD: 09/10/2020 [facility] Sulfamethoxazole 800 MG / Trimethoprim 160 MG Oral Tab let 800-160 mg SULFAMETHOXAZOLE/TRIMETHOPRIM 09/09/2020 12:00:00 AM EDT tablet 14 TAKE ONE TABLET BY MOUTH EVERY 12 HOURS FOR 7 DAYS TAKE ONE TABLET BY MOUTH EVERY 12 HOURS FOR 7 DAYS SOLD: 09/10/2020 [facility] No Active Medications 09/29/2019 12:00:00 AM EST active [facility] ([facility], ) Acetaminophen 325 MG / Hydrocodone Bitartrate 5 MG Oral Tabl et [Linwood] Linwood 09/08/2019 12:00:00 AM EDT ORAL completed [facility] ([facility], ) Sulfamethoxazole 800 MG / Trimethoprim 1 60 MG Oral Tablet sulfamethoxazole 800 mg-trimethoprim 160 mg tablet TAKE ONE TABLET BY MOUTH EVERY 12 HOURS FOR 7 DAYS sulfamethoxazole 800 mg-trimethoprim 160 mg tablet TAKE ONE TABLET BY MOUTH EVERY 12 HOURS FOR 7 DAYS completed sulfamethoxazole 800 MG / trimethoprim 160 MG Oral Tablet [facility] ([facility]) Insurance Providers Payer name Policy type / Coverage type Policy ID Covered libertarian ID Covered libertarian's relationship to dawkins Policy Dawkins Plan Information [employer] COMMUNITY PLAN MCDO [id number] SP [id number] [employer] COMMUNITY PLAN MCDO [id number] SP [id number] EMEDNY [id number] SP [id number] Managed Care - [facility] Community Plan P [id number] S [id number] Medicaid S [id number] S [id number] [facility] O [id number] S [id number] Managed Care - [facility] Community Plan P [id number] S [id number] [facility] COMMUN[facility] PL[id number] SP [id number] [employer] [id number] SP [id number] [facility] Commercial Self Problems, Conditions, and Diagnoses Code Display Name Description Problem Type Effective Dates Data Source(s) 00191094 Vitamin D deficiency Vitamin D Deficiency Problem 10/20/2020 12:00:00 AM EST [facility] ([facility]) 682.5 Cellulitis of buttock Cellulitis of buttock 09:04:25 AM EDT [facility] Z12.11 Screening for malignant neoplasm of colo n Screening for malignant neoplasm of colon 06/11/2020 09:04:25 AM EDT [facility] 578.1 Hematochezia Hematochezia 06/11/2020 09:04:25 A M EDT [facility] 68774511 Screening procedure Screening Procedure Problem 0 06/11/2020 12:00:00 AM EDT [facility] ([facility]) 81073091 Cellulitis of buttock Cellulitis of Buttock Problem 06/11/2020 12:00:00 AM EDT [facility] ([facility]) 5932548 Melena Melena Problem 06/11/2020 12:00:00 AM ED T [facility] ([facility]) 04244273 Screening procedure Screening Procedure Problem 0 06/11/2020 12:00:00 AM EDT [facility] ([facility]) 48614638 Cellulitis of buttock Cellulitis of Buttock Problem 06/11/2020 12:00:00 AM EDT [facility] ([facility]) 9028932 Melena Melena Problem 06/11/2020 12:00:00 AM ED T [facility] ([facility]) 782.2 Soft tissue swelling Soft tissue swelling 03/15 01:23:07 PM EDT [facility] V85.41 BMI 40.0-44.9 BMI 40.0-44.9 03/15/2020 01:23:07 PM EDT [facility] 278.01 MORBID OBESITY MORBID OBESITY 03/15/2020 01:23: 07 PM EDT [facility] 492572482 Prediabetes Prediabetes 03/15/2020 01:23:07 PM EDT [facility] 001543813 Finding of body mass index Finding of Body Mass Index Problem 03/15/2020 12:00:00 AM EDT [facility] ([facility]) 135199339 Polyalgia Polyalgia Problem 03/15/2020 12:00:00 AM ED T [facility] ([facility]) [id number] Severe obesity Severe Obesity Problem 03/15/2020 12 :00:00 AM EDT [facility] ([facility]) 212068286 Finding of body mass index Finding of Body Mass Index Problem 03/15/2020 12:00:00 AM EDT [facility] ([facility]) 396116352 Polyalgia Polyalgia Problem 03/15/2020 12:00:00 AM ED T [facility] ([facility]) [id number] Severe obesity Severe Obesity Problem 03/15/2020 12 :00:00 AM EDT [facility] ([facility]) Results ID Date Data Source [id number] 11/21/2020 10:00:00 AM EST [facility] Name Value Range Interpretation Code Description Data Jadyn rce(s) Supporting Document(s) SARS coronavirus 2 RNA Not Detected [facility] [place] This lab was ordered by [facility] and reported by [facility]. ID Date Data Source [id number] 09/30/2020 08:30:00 AM EST [facility] ([facility]) Name Value Range Interpretation Code Description Data Jadyn rce(s) Supporting Document(s) Hemoglobin A1c/Hemoglobin.total in Blood 5.5 % normal Hemoglobin a1C [facility] ([facility]) estimated average glucose 111 mg/dL 60-110 Above high norm al Estimated Average Glucose [facility] ([facility]) ID Date Data Source [id number] 09/30/2020 08:30:00 AM EST [facility] ([facility]) Name Value Range Interpretation Code Description Data Jadyn rce(s) Supporting Document(s) total 25(oh) vitamin D 19.3 NG/mL 30.0-100.0 Below low normal T otal 25(Oh) Vitamin D [facility] ([facility]) ID Date Data Source [id number] 09/30/2020 08:30:00 AM EST [facility] ([facility]) Name Value Range Interpretation Code Description Data Jadyn rce(s) Supporting Document(s) thyroid stimulating hormone 1.090 uIU/mL 0.358-3.740 normal Thyroid Stimulating Hormone [facility] ([facility]) free T4 1.00 NG/dL 0.76-1.46 normal Free T4 [facility] ([facility]) ID Date Data Source [id number] 09/30/2020 08:30:00 AM EST [facility] ([facility]) Name Value Range Interpretation Code Description Data Jadyn rce(s) Supporting Document(s) prostatic specific Ag monitor 1.32 NG/mL < 4.00 normal Prostatic Specific Ag Monitor [facility] ([facility]) ID Date Data Source [id number] 09/30/2020 08:30:00 AM EST [facility] ([facility]) Name Value Range Interpretation Code Description Data Jadyn rce(s) Supporting Document(s) HDL cholesterol 36 mg/dL >40 Below low normal HDL Cholestero l [facility] ([facility]) Cholesterol in LDL [Mass/volume] in Serum or Plasma 158 mg/dL <100 Above high normal LDL Cholesterol [facility] ([facility]) triglycerides level 137 mg/dL <150 normal Triglycerides Le sarah [facility] ([facility]) cholesterol level 221 mg/dL <200 Above high normal Cholesterol Level [facility] ([facility]) non-HDL-C 185 mg/dL normal Non-hdl-c [facility] ([facility]) cholesterol risk ratio <5 Above high normal Choles terol Risk Ratio [facility] ([facility]) ID Date Data Source [id number] 09/30/2020 08:30:00 AM EST [facility] ([facility]) Name Value Range Interpretation Code Description Data Jadyn rce(s) Supporting Document(s) glucose, fasting 88 mg/dL 70-100 normal Glucose, Fasting AT [facility] ([facility]) glomerular filtration rate > 60.0 >56 normal Glomerula r Filtration Rate [facility] ([facility]) sodium level 138 mEq/L 136-145 normal Sodium Level [facility] ([facility]) creatinine for GFR 0.80 mg/dL 0.70-1.30 normal Creatinine for GF R [facility] ([facility]) blood urea nitrogen 15 mg/dL 7-18 normal Blood Urea Nitro gen [facility] ([facility]) carbon dioxide level 29 mEq/L 21-32 normal Carbon Dioxide Level [facility] ([facility]) chloride level 105 mEq/L 98-107 normal Chloride Level [facility] ([facility]) anion gap 4 mEq/L 8-16 Below low normal Anion Gap [facility] ( [facility]) potassium serum 4.5 mEq/L 3.5-5.1 normal Potassium Serum [facility] ([facility]) AST/SGOT 21 U/L 7-37 normal AST/SGOT [facility] ([facility]) alkaline phosphatase 67 U/L 45-117 normal Alkaline Phosph atase [facility] ([facility]) bilirubin,total 0.4 mg/dL 0.2-1.0 normal [facility] level 9.5 mg/dL 8.5-10.1 normal Calcium Level [facility] ( [facility]) ALT/SGPT 54 U/L 12-78 normal ALT/SGPT [facility] ([facility]) albumin/globulin ratio normal Albumin/globu laila Ratio [facility] ([facility]) total protein 7.3 gm/dL 6.4-8.2 normal Total Protein [facility] ( [facility]) albumin 3.8 gm/dL 3.2-5.2 normal Albumin [facility] ([facility]) ID Date Data Source [id number] 09/30/2020 08:30:00 AM EST [facility] ([facility]) Name Value Range Interpretation Code Description Data Jadyn rce(s) Supporting Document(s) hemoglobin 15.1 g/dL 13.5-17.5 normal Hemoglobin [facility] ([facility]) white blood count 6.1 10 4.0-10.0 normal White Blood Count [facility] ([facility]) red blood count 5.45 10 4.30-6.10 normal Red Blood Count [facility] ([facility]) mean corpuscular volume 88.8 fL 80.0-96.0 normal Mean Corpusc ular Volume [facility] ([facility]) mean corpuscular hemoglobin 27.7 pg 27.0-33.0 normal Mean Corpuscular Hemoglobin [facility] ([facility]) hematocrit 48.4 % 42.0-52.0 normal Hematocrit [facility] ([facility]) mean corpuscular HGB conc 31.2 g/dL 32.0-36.5 Below low neeraj l Mean Corpuscular HGB Conc [facility] ([facility]) red cell distribution width 13.4 % 11.5-14.5 normal Red Cell Distribution Width [facility] ([facility]) neutrophils % 54.4 % 36.0-66.0 normal Neutrophils % [facility] ( [facility]) platelet count, automated 282 10 150-450 normal Platelet C ount, Automated BELLA ([facility]) mono % 9.2 % 0.0-5.0 Above high normal [place] % [facility] ([facility]) lymph % 32.3 % 24.0-44.0 normal Lymph % [facility] ([facility]) eos % 2.6 % 0.0-3.0 normal Eos % [facility] ([facility]) baso % 0.8 % 0.0-1.0 normal Baso % TIL[place] ([facility]) immature granulocyte % 0.7 % 0-3.0 normal Immature Gran ulocyte % [place] ([facility]) nucleated red blood cell % 0.0 % 0-0 normal Nucleated Red Blood Cell % [place] ([facility]) neutrophils # 3.3 10 1.5-8.5 normal Neutrophils # [place] ( [facility]) lymph # 2.0 10 1.5-5.0 normal Lymph # [place] ([facility]) eos # 0.2 10 0.0-0.5 normal Eos # [place] ([facility]) baso # 0.1 10 0.0-0.2 normal Baso # [place] ([facility]) mono # 0.6 10 0.0-0.8 normal [place] # [place] ([facility]) ID Date Data Source [id number] 06/11/2020 08:33:24 AM EDT [facility] Measurements & CalculationsHeight: 69 inches (5 ft. 9 in.) 175.26 cm Weight: 239 pounds 8 oz. 108.86 kg Body Mass Index (BMI): 35.50BMI Interpretation: ObeseBody Surface Area (BSA): 2.23Weight Management Education Done (Nutrition/Physical Activity)Vital SignsTemperature: 96.6F 35.89C tympanic Pulse Rate: 59 beats/sravanthi teRespiratory Rate: 18 respirations/minuteBlood Pressure: 133/79 left arm sitting automaticO2 Saturation: 97% Vital Signs performed by: Rima Bauman LPN, June 11, 2020 8:34 AMVital Signs performed by: Flaquito BENOIT, June 11, 2020 8:43 AMMultiple Vital SignsInitial BP: 152/91Vitals #2BP: 133/79 (primary)Performed by: Rima Bauman LPN, June 11, 2020 9:09 AMInitial Intake Information From: patientRoom #: 1Infectious Disease / Travel ScreeningRecent travel for you or any close contacts? NoHave you had any close contact with anyone diagnosed with or under investigation for COVID-19 (coronavirus)? NoFever? NoRespiratory symptoms: cough, cold, congestion, shortness of breath, difficulty breathing? NoLoss of smell? NoLoss of taste? NoSmoking, Tobacco, Vaping or Smoke Exposure StatusSmoke Status: former smokerTobacco Use: NoDo you vape? NoPassive Smoke Exposure: NoHealthcare HistorySince your last office visit...Have you been admitted to the hospital? No Have you been to an emergency room (ER) or urgent care clinic? NoHave you seen another healthcare provider? NoHave you seen a dentist? NoIntake performed by: Rima Bauman LPN, June 11, 2020 8:35 AMRate Your HealthIn general, would you say your health is? Very GoodPain AssessmentAre you currently having any pain which... You would like your provider to address? No Affects your activity level? NoDepression Screening - PHQ-2Over the last two weeks, have you... Had little interest or pleasure in doing things? Not at all Been feeling down, depressed, or hopeless? Not at all PHQ-2 Score: 0Anxiety Screening - SARA-2Over the last two weeks, have you been... Feeling nervous, anxious, or on edge? Not at all Unable to stop or control worrying? Not at all SARA-2 Score: 0Food InsecurityWithin the past year...Did you worry whether your food would run out before you got money to buy more? NoWas there a time when the food you bought didn't last and you didn't have money to get more? YesScreening, Brief Intervention, & Referral to Treatment (SBIRT)Pre-Screening Questions How many times have you have 5 or more drinks in a day? 0How many times have you used an illegal drug or used a prescription medication for a non-medical reason? 0Performed by: Rima Bauman LPN, June 11, 2020 8:35 AMPatient History Medical History:No known medical historySurgical History:Tonsillectomyvasecto myventral hernia repair 09/2019Family History:Diabetes (Father)Social/Personal History: Chief Complaintbloody stoolsHistory of Present Illness (HPI)59 yo male presents for bloody stools x2 weeks.Pt reports initially he was eating high quantities of red licorice, but then noted it was in fact blood. Reports a small amount of bloody white discharge first, but states he has been drinking high quantities of milk recently. States it is getting slightly better. Has never had colonoscopy. Denies constipation, itching, painful BM. Pt states he also has a sore on his buttock that was red and tender, started an old unused Rx of Amoxicillin 7 days ago, been taking 2 twice daily. States it began as a pimple and was very hard, ruptured at home, feels significantly improving with the antibiotics and is no longer painful. Works in the [employer] and states he has a hairy buttock.HPI performed by: Flaquito BENOIT, June 11, 2020 8:55 AMProblem ReviewProblem List was reviewed and/or updated during this visit .Medication Reconciliation & ReviewMedication List was reviewed and/or updated during this visit, including review of any eofx-wie-ixpcyja medications, herbal therapies, and/or supplements.Allergy ReviewAllergy List was reviewed and/or updated during this visit. Patient has no known allergies.Adult Preventive CareLabs/Meds/Other Counseling-Nutrition and Physical Activity:BMI Interpretation: Obese (06/11/2020) Counseling: Done (06/11/2020) Physical Activity: Done (06/11/2020)Review of Systems General: Denies loss of appetite, chills, dizziness, fatigue, fever, headache, feeling ill. Cardiovascular: Denies chest pain, palpitations, feeling faint, peripheral edema. Respiratory: Denies cough, difficulty breathing, shortness of breath. Gastrointestinal: Complains of blood in stool. Denies nausea, vomiting, diarrhea, constipation, pain or discomfort, pain with BM, change in bowel habits, abdominal pain, black or tarry stools. Skin: Complains of see HPI, redness. Neurologic: Denies weak ness, feeling faint. Physical ExamGeneral Appearance: well nourished, well hydrated, no acute distress, somewhat unkeptEyes, External: conjunctivae and lids normal, EOMIRespiratory, Auscultation: clear to auscultation bilaterally; no rales, rhonchi, or wheezesCardiovascular, Auscultation: S1, S2 audible; no murmur, rub, or gallop; RRRPeripheral Circulation: no clubbing, cyanosis, edema, or varicositiesAbdomen: soft, non-tender, no masses, bowel sounds normalRectum: Perianal area with no lesions or discharge and appears normal. Digital anal rectal exam is smooth, with no focal pain, induration, thickening or masses. There is no fissure. Chicken Cutter: María Argueta & Station: [facility], Inspection: healing pustule on buttock with slight firm induration, no drainage, no fluctuance, nontender, no excessive warmthOrientation: oriented to time, place, and personJudgment & Insight: intactRate Your HealthIn general, would you say your health is? Very GoodAssessment & Plan Problems:Added: Cellulitis of buttock (ICD-682.5) (WLW96-K35.317) Assessment: Instructions: Likely originated from a plugged hair follicle. Appears to be improving, take amoxicillin for a total of 10 days. Continue with epsom salt soaks. Keep area clean and dry. Return for worsening symptoms.Hematochezia (ICD-578.1) (ICD10- K92.1) Assessment: Instructions: Improving. Possibly internal hemorrhoidal bleeding versus colon irritation from high levels of dairy intake (possible sensitivity). Referred for colonoscopy, call sooner for any change or worsening symptoms.Screening for malignant neoplasm of colon (UJH43-C08.11) Assessment: Instructions: As above.Patient Instructions/Care Plan: Cellulitis of buttock: Likely originated from a plugged hair follicle. Appears to be improving, take amoxicillin for a total of 10 days. Continue with epsom salt soaks. Keep area clean and dry. Return for worsening symptoms.Hematochezia: Improving. Possibly internal hemorrhoidal bleeding versus colon irritation from high levels of dairy intake (possible sensitivity). Referred for colonoscopy, call sooner for any change or worsening symptoms.Screening for malignant neoplasm of colon: As above. Plan developed in collaboration with patient and/or familyMedications:AMOXICILLIN 500 MG ORAL TABLETMedication Changes:Added: AMOXICILLIN 500 MG ORAL TABLET-one tablet by mouth once dailyRemoved:GLUCOSAMINE CAPSULEAllergies:No Known Allergies (updated 06/11/2020) Orders:Gastroenterology Consult [CPT-46383] Adult - Ofc Vst, EST, Level III [CPT-31221] Follow-Up Return to clinic: as needed Clinical Visit Summary Completed Name Value Range Interpretation Code Description Data Jadyn rce(s) Supporting Document(s) ID Date Data Source [id number] 04/23/2020 10:08:53 AM EDT [facility] Labs In-House Blood TestsDate/Time Colle cted: April 23, 2020 10:09 AMTest Result Reference Range Normal ValueComments: blood draw done in offcie done in the right ac tolerated well Jean Marroquin MA, April 23, 2020 10:09 AMAssessment & Plan Orders:[id number] Vst-Est Level I [CPT-00980] 28901 - Venipuncture [CPT-01454] Name Value Range Interpretation Code Description Data Jadyn rce(s) Supporting Document(s) ID Date Data Source [id number] 04/23/2020 10:05:00 AM EDT [facility] Name Value Range Interpretation Code Description Data Jadyn rce(s) Supporting Document(s) HCT 46.4 % 42.0-52.0 N [facility] HGB 14.8 g/dL 13.5-17.5 N [facility] MCH 31.9 G/DL pg 32.0-36.5 L [facility] MCHC 28.3 PG % 27.0-33.0 N [facility] PLATELETS 270 10 10*3/mm3 150-450 N [facility] RBC 5.23 10 10*6/mm3 4.30-6.10 N [facility] RDW 13.2 % 11.5-14.5 N [facility] WBC TOTAL 6.0 4.0-10.0 N [facility] ID Date Data Source [id number] 04/23/2020 10:05:00 AM EDT [facility] Name Value Range Interpretation Code Description Data Jadyn rce(s) Supporting Document(s) BG FASTING 97 mg/dL 70-100 N [facility] T4, FREE 0.94 ng/dL 0.76-1.46 N [facility] y Health TSH 0.823 microintl units/mL 0.358-3.740 N [facility] ID Date Data Source [id number] 04/23/2020 10:05:00 AM EDT [facility] Name Value Range Interpretation Code Description Data Jadyn rce(s) Supporting Document(s) HGBA1C 6.1 % N [facility] ID Date Data Source [id number] 03/15/2020 12:59:58 PM EDT [facility] Measurements & CalculationsHeight: 69 inches (5 ft. 9 in.) 175.26 cm Weight: 249.2 pounds 113.27 kg Body Mass Index (BMI): 36.93BMI Interpretation: ObeseBody Surface Area (BSA): 2.27Vital SignsTemperature: 97.6FPulse Rate: 59 beats/minuteRespiratory Rate: 16 respirations/minuteBlood Pressure: 123/80 right arm sitting automaticO2 Saturation: 93% Vital Signs performed by: Kitty Kelly MA, March 15, 2020 1:07 PMVital Signs performed by: Flaquito BENOIT, March 15, 2020 1:14 PMMultiple Vital SignsInitial BP: 146/80Vitals #2BP: 123/80 (primary)Performed by: Rosa Elena Palomino LPN, March 15, 2020 1:27 PMComments: left armInitial Intake Information From: patientRoom #: 1Infectious Disease / Travel ScreeningRecent travel for you or any close contacts? NoHave you had any close contact with anyone diagnosed with or under investigation for COVID-19 (coronavirus)? NoRespiratory symptoms: cough, cold, congestion, shortness of breath, difficulty breathing? NoLoss of smell? NoLoss of taste? NoSmoking, Tobacco, Vaping or Smoke Exposure StatusSmoke Status: former smokerTobacco Use: NoDo you vape? NoHealthcare HistorySince your last office visit...Have you been admitted to the hospital? NoHave you been to an emergency room (ER) or urgent care clinic? NoHave you seen another healthcare provider? NoHave you seen a dentist? NoIntake performed by: Kitty Kelly MA, March 15, 2020 1:03 PMRate Your HealthIn general, would you say your health is? GoodPain AssessmentAre you currently having any pain which... You would like your provider to address? Yes Affects your activity level? YesDepression Screening - PHQ-2Over the last two weeks, have you... Had little interest or pleasure in doing things? Not at all Been feeling down, depressed, or hopeless? Not at all PHQ-2 Score: 0Anxiety Screening - SARA-2Over the last two weeks, have you been... Feeling nervous, anxious, or on edge? Not at all Unable to stop or control worrying? Not at all SARA-2 Score: 0Pain AssessmentPain ScaleNumeric Rating Scale: 1 / 10Location: neck Duration: 2 weeksScreening, Brief Intervention, & Referral to Treatment (SBIRT)Pre-Screening Questions How many times have you have 5 or more drinks in a day? 0How many times have you used an illegal drug or used a prescription medication for a non-medical reason? 0Performed by: Kitty Kelly MA, March 15, 2020 1:04 PMPatient History Medical History:No known medical historySurgical History:Tonsillectomyvasectomyventral hernia repair 09/2019Family History:Diabetes (Father)Social/Personal History: Chief Complaint6 month FUHistory of Present Illness (HPI)59 year old male here for a 6 month follow-up. Pt with prediabetes, hyperlipidemia, due for labs at this time. Pt is having neck pain and swelling. Pt states it has been going on for a couple weeks now. Not worsening, but not improving. No illness at onset of swelling. It is sort of at the base of both sides of the neck, soft. HPI performed by: Flaquito BENOIT, March 15, 2020 1:14 PMProblem ReviewProblem List was reviewed and/or updated during this visit.Medication Reconciliation & ReviewMedication List was reviewed and/or updated during this visit, including review of any qgzk-wfp-axdwfyl medications, herbal therapies, and/or supplements.Allergy ReviewAllergy List was reviewed and/or updated during this visit. Patient has no known allergies.Provider Calculated and Reviewed all Clinical Protocols for patient today. Review of Systems General: Denies loss of appetite, chills, dizziness, fatigue, fever, headache, feeling ill. Ears/Nose/Throat: Denies earache, sore throat, hoarseness, difficulty swallowing, tooth pain, swollen glands. Cardiovascular: Denies chest pain, palpitations, feeling faint. Res piratory: Denies cough, difficulty breathing, shortness of breath. Gastrointestinal: Denies nausea, vomiting, diarrhea, constipation, pain or discomfort. Musculoskeletal: Denies joint pain, muscle aches, stiffness, recent injury. Skin: Denies rash, redness, itching, suspicious lesions. soft tissue swelling at b/l base of anterior neckNeurologic: Denies weakness, feeling faint. Heme/Lymphatic: Denies abnormal bruising, bleeding. Physical ExamGeneral Appearance: well nourished, well hydrated, no acute distressEyes, External: conjunctivae and lids normal, EOMINeck: supple, no masses, trachea midline, full range of motion of neck, large golf ball sized soft tissue swelling at base of neck overlying proximal 1/3-1/2 of sternums, nontender, no firmness, no erythemaThyroid: no nodules, masses, tenderness, or enlargementRespiratory, Auscultation: clear to auscultation bilaterally; no rales, rhonchi, or wheezesCardiovascular, Auscultation: S1, S2 audible; no murmur, rub, or gallop; RRRPeripheral Circulation: no clubbing, cyanosis, edema, or varicositiesAbdomen: soft, non-tender, no masses, bowel sounds normalGait & Station: normalSkin, Inspection: no rashes, lesions, or ulcerationsOrientation: oriented to time, place, and personMood & Affect: no depression, anxiety, or agitationJudgment & Insight: intactRate Your HealthIn general, would you say your health is? GoodAssessment & Plan Problems:Added: MORBID OBESITY (ICD- 278.01) (NDT15-A67.01) Assessment: Instructions: As above.BMI 40.0-44.9 (ICD-V85.41) (ZBV75-C80.41) Assessment: Instructions: As above.Soft tissue swelling (ICD-782.2) (IHL60-C58.89) Assessment: Instructions: Blood work and ultrasound ordered to evaluate further. We will coordinate scheduling this for you.Changed:From: Dx of Hyperglycemia, unspecified (BUW91-J25.9) To: Prediabetes (ECH42-H75.03)Assessed:Hyperlipidemia, unspecified (BYU15-O59.5) Assessment: Instructions: Fasting labs have been ordered for you today. When labs are drawn, please ensure that you have had nothing to eat or drink for 8-10 hours prior to the blood drawn. Water or black coffee is OK to have before the blood draw. Recommend healthy lifestyle modification. Encourage portion control, healthy food choices, and increasing routine physical activity. Recommendation is for 150 minutes throughout the week of cardiovascular exercise.Prediabetes (ABG31-E28.03) Assessment: Instructions: Recommend low carbohydrate diet: reduce pasta, bread, potatoes, rice. If you do eat carbohydrates, better choices are whole wheat and brown rice products. Recommend portion control and avoidance of soda and sugary foods. Increase physical activity and monitor weight. Repeat A1c as ordered.Removed:Reducible umbilical hernia (ICD-553.1) (FFS05-H40.9)Patient Instructions/Care Plan: Hyperlipidemia- unspecified: Fasting labs have been ordered for you today. When labs are drawn, please ensure that you have had nothing to eat or drink for 8-10 hours prior to the blood drawn. Water or black coffee is OK to have before the blood draw. Recommend healthy lifestyle modification. Encourage portion control, healthy food choices, and increasing routine physical activity. Re commendation is for 150 minutes throughout the week of cardiovascular exercise.Prediabetes: Recommend low carbohydrate diet: reduce pasta, bread, potatoes, rice. If you do eat carbohydrates, better choices are whole wheat and brown rice products. Recommend portion control and avoidance of soda and sugary foods. Increase physical activity and monitor weight. Repeat A1c as ordered.MORBID OBESITY: As above.BMI 40.0-44.9: As above.Soft tissue swelling: Blood work and ultrasound ordered to evaluate further. We will coordinate scheduling this for you. Plan developed in collaboration with patient and/or familyMedications:GLUCOSAMINE CAPSULEMedication Changes:Added: GLUCOSAMINE CAPSULERemoved:QC VITAMIN D3 1000 UNIT ORAL CAPSULE-Take one tab po QD Qty: 30[Capsule] Refills: 5Allergies:No Known Allergies (updated 03/15/2020) Orders:COMP METABOLIC PANEL [CPT-67639] CBC W/DIFF [CPT-40317] HgBA1c [CPT- 37702] LIPID PANEL [CPT-24537] TSH [CPT-85843] T-4 free [CPT-69811] Ultrasound, soft tissues of head and neck [CPT-81291] Adult - Ofc Vst, EST, Level III [CPT- 92995] Follow-Up Return to clinic: in 6 months for preventive care visitAdditional Follow-Up: annual PE, labsClinical Visit Summary Comp leted Name Value Range Interpretation Code Description Data Jadyn rce(s) Supporting Document(s) Procedure Vital Signs ID Date Data Source UNK Name Value Range Interpretation Code Description Data Source(s) Body surface area Derived from formula 2.24 m2 2.24 m2 KEKE ([facility], ) Body weight 109.318 kg 109.318 kg [facility] ([facility], ) [place] body weight 160 [lb_av] 160 [lb_av] MEDEN T ([facility]) Body mass index (BMI) [Ratio] 35.6 kg/m2 35.6 k g/m2 [facility] ([facility]) Body weight 241.00 [lb_av] 241.00 [lb_av] MEDEN T ([facility], ) Body height 69 [in_i] 69 [in_i] [facility] ([facility] 5'9" Diastolic blood pressure 84 mm[Hg] 84 mm[Hg] [facility] ([facility]) Systolic blood pressure 130 mm[Hg] 130 mm[Hg] [facility] Body weight 3888 [oz_av] 3888 [oz_av] BELLA ([facility]) Systolic blood pressure 124 mm[Hg] 124 mm[Hg] A [facility] ([facility]) Body mass index (BMI) [Ratio] 35.9 kg/m2 35.9 k g/m2 [facility] ([facility]) Body height 69 [in_i] 69 [in_i] [facility] ([facility]) Diastolic blood pressure 83 mm[Hg] 83 mm[Hg] [facility] ([facility]) Body weight 3828 [oz_av] 3828 [oz_av] [facility] ([facility]) Systolic blood pressure 121 mm[Hg] 121 mm[Hg] A [facility] ([facility]) Body mass index (BMI) [Ratio] 35.3 kg/m2 35.3 k g/m2 [facility] ([facility]) Body height 69 [in_i] 69 [in_i] [facility] ([facility]) Diastolic blood pressure 74 mm[Hg] 74 mm[Hg] [facility] ([facility]) Body weight 3828 [oz_av] 3828 [oz_av] [facility] ([facility]) Systolic blood pressure 121 mm[Hg] 121 mm[Hg] A [facility] ([facility]) Body mass index (BMI) [Ratio] 35.3 kg/m2 35.3 k g/m2 [facility] ([facility]) Body height 69 [in_i] 69 [in_i] [facility] ([facility]) Diastolic blood pressure 74 mm[Hg] 74 mm[Hg] [facility] ([facility]) Body weight 3832 [oz_av] 3832 [oz_av] [facility] ([facility]) Systolic blood pressure 133 mm[Hg] 133 mm[Hg] [facility] Body height 69 [in_i] 69 [in_i] [facility] ([facility]) Diastolic blood pressure 79 mm[Hg] 79 mm[Hg] [facility] ([facility]) Body weight 3832 [oz_av] 3832 [oz_av] [facility] ([facility]) Systolic blood pressure 133 mm[Hg] 133 mm[Hg] A [facility] ([facility]) Body height 69 [in_i] 69 [in_i] BELLA ([facility]) Diastolic blood pressure 79 mm[Hg] 79 mm[Hg] [facility] ([facility]) Body weight 3987.2 [oz_av] 3987.2 [oz_av] ATHEN A ([facility]) Systolic blood pressure 123 mm[Hg] 123 mm[Hg] [facility] Body height 69 [in_i] 69 [in_i] BELLA ([facility]) Diastolic blood pressure 80 mm[Hg] 80 mm[Hg] [facility] ([facility]) Body weight 3987.2 [oz_av] 3987.2 [oz_av] ATHEN A ([facility]) Systolic blood pressure 123 mm[Hg] 123 mm[Hg] A [facility] ([facility]) Body height 69 [in_i] 69 [in_i] BELLA ([facility]) Diastolic blood pressure 80 mm[Hg] 80 mm[Hg] [facility] ([facility]) Body surface area Derived from formula 2.23 m2 2.23 m2 [facility] ([facility]) Body weight 108.212 kg 108.212 kg [facility] [place] body weight 160 [lb_av] 160 [lb_av] GUERA Calv[place] ([facility], ) Body mass index (BMI) [Ratio] 35.2 kg/m2 35.2 k g/m2 [facility] Body weight 238.56 [lb_av] 238.56 [lb_av] [facility] [place] ([facility], ) Body height 69 [in_i] 69 [in_i] [facility] ([facility], ) 5'9" Diastolic blood pressure 84 mm[Hg] 84 mm[Hg] KEKE ([facility], ) Systolic blood pressure 122 mm[Hg] 122 mm[Hg] M ISMA ([facility], ) Patient Treatment Plan of Care Planned Activity Planned Date Details Description Data Source (s) Sulfamethoxazole 800 MG / Trimethoprim 160 MG Oral Tablet BELLA ([facility])
--- OUTSIDE RECORDS SUMMARY | 2020-11-26 07:34 | CCD ---
Author Organization Unknown Address [address] [place] [address] Phone [phone] Care Team Providers [employer] Name Role Phone Payam Siria Unavailable Unavailable Allergies Code Code System Name Reaction Severity Status Onset NKDA Medications Name Status Start Date Stop Date Bactrim DS 800 mg-160 mg tablet Take 1 tablet every 12 hours by oral route for 7 days. 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 Past Encounters 09/09/2020 Abscess of Skin And/or Subcutaneous Tissue; Screening for Malignant Neoplasm of Colon; Hyperlipidemia; Adult Health Examination; Prediabetes; Melena; Impacted Cerumen of Bilateral Ears ONDINA StevensonP-BC: [address] [place] [address], Ph. Social History Tobacco Smoking Status Former Smoker Vaccine List None recorded. Plan of Care Patient Instructions Annual physical exam done today. labs o rdered, please return to have la bs done. Please fast for 8-10 hours prior. Reminders Provider Appointments None recorded. Lab None recorded. Referral None recorded. Procedures None recorded. Surgeries None recorded. Imaging None recorded. Vitals 09/09/2020 01:00PM ANNUAL EXAM Height Weight BMI [...]
[2020-11-26] MEDS ORDERED: LIDOCAINE 2% 100MG/5ML SDV (FOR ANES.) As Ordered ONE (09:28)
[2020-11-26] MEDS ORDERED: propofoL 200 MG/20 ML VIAL As Ordered ONE (09:28)
--- NOTE | 2020-11-26 09:41 | ROOR ---
Patient Name: Peterson Hardy Procedure Date: 11/26/2020 8:53 AM Date of : 1960 Age: 60 Room: [facility] Gender: Male Note Status: Finalized Procedure: Colonoscopy Indications: Screening for colorectal malignant neoplasm Providers: Soto Santiago MD Referring MD: Siria Hare NP Requesting Provider: Medicines: Monitored Anesthesia Care Complications: No immediate complications. Procedure: Pre-Anesthesia Assessment: - Prior to the procedure, a History and Physical was performed, and patient medications and allergies were reviewed. The patient is competent. The risks and benefits of the procedure and the sedation options and risks were discussed with the patient. All questions were answered and informed consent was obtained. Patient identification and proposed procedure were verified by the physician, the nurse and the anesthesiologist in the procedure room. Mental Status Examination: alert and oriented. Airway Examination: normal oropharyngeal airway and neck mobility. Respiratory Examination: clear to auscultation. CV Examination: normal. Prophylactic Antibiotics: The patient does not require prophylactic antibiotics. Prior Anticoagulants: The patient has taken no previous anticoagulant or antiplatelet agents. ASA Grade Assessment: II - A patient with mild systemic disease. After reviewing the risks and benefits, the patient was deemed in satisfactory condition to undergo the procedure. The anesthesia plan was to use monitored anesthesia care (MAC). Immediately prior to administration of medications, the patient was re-assessed for adequacy to receive sedatives. The heart rate, respiratory rate, oxygen saturations, blood pressure, adequacy of pulmonary ventilation, and response to care were monitored throughout the procedure. The physical status of the patient was re-assessed after the procedure. The Colonoscope was introduced through the anus and advanced to the terminal ileum, with identification of the appendiceal orifice and IC valve. The colonoscopy was performed without difficulty. The patient tolerated the procedure well. The quality of the bowel preparation was good. The terminal ileum, ileocecal valve, appendiceal orifice, and rectum were photographed. Scope insertion time was 2 minutes. Scope withdrawal time was 9 minutes. The total duration of the procedure was 12 minutes. Findings: The perianal and digital rectal examinations were normal. The terminal ileum appeared normal. Inflammation characterized by erythema, friability, granularity, aphthous ulcerations and confluent ulcerations was found in a continuous and circumferential pattern from the rectum to the sigmoid colon and as patches surrounded by normal mucosa in the transverse colon and in the hepatic flexure. The descending colon, the cecum and the ileocecal valve were spared. This was moderate in severity. Multiple biopsies were obtained in the rectum, in the sigmoid colon, in the transverse colon and in the ascending colon with cold forceps for histology. Verification of patient identification for the specimen was done by the physician and nurse using the patient's name, date and medical record number. Estimated blood loss was minimal. Multiple small and large-mouthed diverticula were found in the sigmoid colon. There was no evidence of diverticular bleeding. A 5 mm polyp was found in the descending colon. The polyp was sessile. The polyp was removed with a cold biopsy forceps. Resection and retrieval were complete. Non-bleeding external and internal hemorrhoids were found during retroflexion. The hemorrhoids were small. Impression: - The examined portion of the ileum was normal. - Colitis. Inflammation was found from the rectum to the sigmoid colon, in the transverse colon and in the hepatic flexure. This was moderate in severity. - Mild diverticulosis in the sigmoid colon. There was no evidence of diverticular bleeding. - One 5 mm polyp in the descending colon, removed with a cold biopsy forceps. Resected and retrieved. - Non-bleeding external and internal hemorrhoids. - Multiple biopsies were obtained in the rectum, in the sigmoid colon, in the transverse colon and in the ascending colon. Recommendation: - Patient has a contact number available for emergencies. The signs and symptoms of potential delayed complications were discussed with the patient. Return to normal activities tomorrow. Written discharge instructions were provided to the patient. - High fiber diet. - Continue present medications. - Await pathology results. - Repeat colonoscopy in 1 month to check healing, to assess disease activity and for surveillance based on pathology results. - Return to GI clinic in [facility] (address [address], [address], [place], [facility]) in 4 -- 6 weeks. Please call GI clinic @ [phone] for apppointment date and time. - Return to primary care physician. Procedure Code(s): --- Professional --- 43997, Colonoscopy, flexible; with biopsy, single or multiple Diagnosis Code(s): --- Professional --- Z12.11, Encounter for screening for malignant neoplasm of colon K64.8, Other hemorrhoids K52.9, Noninfective gastroenteritis and colitis, unspecified K63.5, Polyp of colon K57.30, Diverticulosis of large intestine without perforation or abscess without bleeding CPT copyright 2019 [employer]. All rights reserved. The codes documented in this report are preliminary and upon public health worker review may be revised to meet current compliance requirements. Soto Santiago MD Soto Santiago MD 11/26/2020 9:40:58 AM Electronically signed by Soto Santiago MD Number of Addenda: 0 Note Initiated On: 11/26/2020 8:53 AM Estimated Blood Loss: Estimated blood loss was minimal.
[2020-11-26 09:45] VITALS: BP 178/88
== END 2020-11-26 09:54 | disposition home or self-care (01) ==
LOC: M OPP 07:29
PROVIDERS: ATTEND Internal Medicine Gastroenterology
DX: Z12.11 Encounter for screening for malignant neoplasm of colon (principal); K63.5 Polyp of colon; K52.9 Noninfective gastroenteritis and colitis, unspecified; K57.30 Diverticulosis of large intestine without perforation or abscess without bleeding; K64.8 Other hemorrhoids; E78.5 Hyperlipidemia, unspecified; Z87.891 Personal history of nicotine dependence; Z83.3 Family history of diabetes mellitus

== ENCOUNTER 2020-12-28 16:15 | Emergency (ER) | payer OTHER ==
[~2020-12-28] VITALS: Ht 175.3 cm; Wt 108.1 kg
[~2020-12-28 16:15] MED LIST changes: -NS 1,000 ML IV ONE
--- OUTSIDE RECORDS SUMMARY | 2020-12-28 16:23 | CCD ---
Author Author [facility] Organization [facility] Address Unknown Phone Unavailable Care Team Providers Care Nursing Assoc Name Role Phone Arpita Lucio MD Unavailable [...] Unavailable Unavailable Arpita Lucio MD Unavailable Unavailable Aripta Lucio MD Unavailable Unavailable Arpita Lucio MD [...] Unavailable Unavailable Arpita Lucio MD Unavailable Unavailable Roya Silveira FORWARDER OPERATOR FORWARDER OPERATOR Unavailable Unavailable Payam, A Siria FORWARDER OPERATOR Unavailable Unavailable Payam, A Siria FORWARDER OPERATOR Unavailable Unavailable Payam, A Siria FORWARDER OPERATOR Unavailable Unavailable Payam, A Siria FORWARDER OPERATOR Unavailable Unavailable Payam, A Siria FORWARDER OPERATOR Unavailable Unavailable Payam, A Siria FORWARDER OPERATOR Unavailable Unavailable Payam, A Siria FORWARDER OPERATOR Unavailable Unavailable Payam, A Siria FORWARDER OPERATOR Unavailable Unavailable Payam, A Siria FORWARDER OPERATOR Unavailable Unavailable B[place]ank, A Siria FORWARDER OPERATOR Unavailable Unavailable [place], A Siria FORWARDER OPERATOR Unavailable Unavailable [place], A Siria FORWARDER OPERATOR Unavailable Unavailable [place], A Siria FORWARDER OPERATOR Unavailable Unavailable [place], A Siria FORWARDER OPERATOR Unavailable Unavailable [place], A Siria FORWARDER OPERATOR Unavailable Unavailable [place], A Siria FORWARDER OPERATOR Unavailable Unavailable [place], A Siria FORWARDER OPERATOR Unavailable Unavailable [place], A Siria FORWARDER OPERATOR Unavailable Unavailable [place], A Siria FORWARDER OPERATOR Unavailable Unavailable [place], A Siria FORWARDER OPERATOR Unavailable Unavailable [place], A Siria FORWARDER OPERATOR Unavailable Unavailable [place], A Siria FORWARDER OPERATOR Unavailable Unavailable [place], A Siria FORWARDER OPERATOR Unavailable Unavailable [place], A Siria FORWARDER OPERATOR Unavailable Unavailable [place], A Siria FORWARDER OPERATOR Unavailable Unavailable [place], A Siria FORWARDER OPERATOR Unavailable Unavailable [place], A Siria FORWARDER OPERATOR Unavailable Unavailable Payam, A Siria FORWARDER OPERATOR Unavailable Unavailable Silveira, F Roya FORWARDER OPERATOR-BC Unavailable Unavailable Silveira, F Roya FORWARDER OPERATOR-BC Unavailable Unavailable Silveira, F Roya FORWARDER OPERATOR-BC Unavailable Unavailable Silveira, F Roya FORWARDER OPERATOR-BC Unavailable Unavailable Silveira, F Roya FORWARDER OPERATOR-BC Unavailable Unavailable Silveira, F Roya FORWARDER OPERATOR-BC Unavailable Unavailable Silveira, F Roya FORWARDER OPERATOR-BC Unavailable Unavailable Silveira, F Roya FORWARDER OPERATOR-BC Unavailable Unavailable Silveira, F Roya FORWARDER OPERATOR-BC Unavailable Unavailable Silveira, F Roya FORWARDER OPERATOR-BC Unavailable Unavailable Silveira, F Roya FORWARDER OPERATOR-BC Unavailable Unavailable Silveira, F Roya FORWARDER OPERATOR-BC Unavailable Unavailable Silveira, F Roya FORWARDER OPERATOR-BC Unavailable Unavailable Silveira, F Roya FORWARDER OPERATOR-BC Unavailable Unavailable Silveira, F Roya FORWARDER OPERATOR-BC Unavailable Unavailable Silveira, F Roya FORWARDER OPERATOR-BC Unavailable Unavailable Silveira, F Roya FORWARDER OPERATOR-BC Unavailable Unavailable Silveira, F Roya FORWARDER OPERATOR-BC Unavailable Unavailable Silveira, F Roya FORWARDER OPERATOR-BC Unavailable Unavailable Silveira, F Roya FORWARDER OPERATOR-BC Unavailable Unavailable Silveira, F Roya FORWARDER OPERATOR-BC Unavailable Unavailable Silveira, F Roya FORWARDER OPERATOR-BC Unavailable Unavailable STEELE, YANICK FLAQUITO RPA-C [...] [facility], RFROST STEELE PA FLAQUITO Unavailable Unavailable LETTIERE, A PHOEBE PA Unavailable Unavailable LETTIERE, A PHOEBE PA Unavailable Unavailable LETTIERE, A PHOEBE PA Unavailable Unavailable LETTIERE, A PHOEBE PA Unavailable Unavailable LETTIERE, A PHOEBE PA Unavailable Unavailable LETTIERE, A PHOEBE PA Unavailable Unavailable LETTIERE, A PHOEBE PA Unavailable Unavailable LETTIERE, A PHOEBE PA Unavailable Unavailable LETTIERE, A PHOEBE PA Unavailable Unavailable LETTIERE, A PHOEBE PA Unavailable Unavailable LETTIERE, A PHOEBE PA Unavailable Unavailable LETTIERE, A PHOEBE PA Unavailable Unavailable LETTIERE, A PHOEBE PA Unavailable Unavailable LETTIERE, A PHOEBE PA Unavailable Unavailable LETTIERE, A PHOEBE PA Unavailable Unavailable LETTIERE, A PHOEBE PA Unavailable Unavailable LETTIERE, A PHOEBE PA Unavailable Unavailable LETTIERE, A PHOEBE PA Unavailable Unavailable LETTIERE, A PHOEBE PA Unavailable Unavailable LETTIERE, A PHOEBE PA Unavailable Unavailable LETTIERE, A PHOEBE PA Unavailable Unavailable LETTIERE, A PHOEBE PA Unavailable Unavailable LETTIERE, A PHOEBE PA Unavailable Unavailable LETTIERE, A PHOEBE PA Unavailable Unavailable LETTIERE, A PHOEBE PA Unavailable Unavailable LETTIERE, A PHOEBE PA Unavailable Unavailable LETTIERE, A PHOEBE PA Unavailable Unavailable LETTIERE, A PHOEBE PA Unavailable Unavailable LETTIERE, A PHOEBE PA Unavailable Unavailable Feola, T Alba PA Unavailable Unavailable Feola, T Alba PA Unavailable Unavailable Feola, T Alba PA Unavailable Unavailable Feola, T Alba PA Unavailable Unavailable Feola, T Alba PA Unavailable Unavailable Feola, T Alba PA Unavailable Unavailable Feola, T Alba PA Unavailable Unavailable Feola, T Alba PA Unavailable Unavailable Feola, T Alba PA Unavailable Unavailable Feola, T Alba PA Unavailable Unavailable Feola, T Alba PA Unavailable Unavailable Feola, T Alba PA Unavailable Unavailable Feola, T Alba PA Unavailable Unavailable Feola, T Alba PA Unavailable Unavailable Feola, T Alba PA Unavailable Unavailable Feola, T Alba PA Unavailable Unavailable Feola, T Alba PA Unavailable Unavailable Feola, T Alba PA Unavailable Unavailable Feola, T Alba PA Unavailable Unavailable Feola, T Alba PA Unavailable Unavailable Feola, T Alba PA Unavailable Unavailable Feola, T Alba PA Unavailable Unavailable Feola, T Alba PA Unavailable Unavailable Feola, T Alba PA Unavailable Unavailable Feola, T Alba PA Unavailable Unavailable Feola, T Alba PA Unavailable Unavailable Feola, T Alba PA Unavailable Unavailable Feola, T Alba PA Unavailable Unavailable Feola, T Alba PA Unavailable Unavailable Feola, T Alba PA Unavailable Unavailable Feola, T Alba PA Unavailable Unavailable Feola, T Alba PA Unavailable Unavailable Feola, T Alba PA Unavailable Unavailable Feola, T Alba PA Unavailable Unavailable Feola, T Alba PA Unavailable Unavailable Feola, T Alba PA Unavailable Unavailable Shena Figueroa Unavailable Unavailable Re-disclosure Warning The records that [...] is protected by Article 27-F of the [facility] Public Health law. If you continue you may have access to information: Regarding HIV / AIDS; Provided by facilities licensed or operated by the [facility] Office of Mental Health; or Provided by the [facility] Office for People With Developmental Disabilities. If such information is present, then the following [facility] mandated warning applies: This information has been [...] law may result in a fine or long term sentence or both. A general authorization for the release of medical or other information is NOT sufficient authorization for further disc losure. Family History Family Member Name Family Member Gender Family Member Status Date o f Status Description Data Source(s) Unknown Female Problem [facility] ([facility]) Encounters Encounter Providers Location Date Indications Data Source(s ) O Attender: Alba BENOIT 021 10:48:41 AM EST - 12/28/2020 11:42:16 AM EST [facility] ([facility] ) Office Visit Attender: PHOEBE sahni 12/21/2020 12:20:00 PM EST [facility] ([facility] KATHLEEN StevensonBC: [address] [place] [address], Ph. Attender: Siria Hare [facility] Medical 10/18/2020 12:00:00 AM EST Procedure by Method [place] ([facility]) Procedure by Method Frederick Lucio MD: [address] [place] [address], Ph. Attender: Frederick Lucio [facility] 09/30/2020 12:00:00 AM EST [place] ([facility]) KATHLEEN Stevenson: [address] [place] [address], Ph. Attender: Siria Hare [facility] Medical 09/09/2020 12:00:00 AM EDT [place] ([facility]) KATHLEEN Stevenson: [address] [place] [address], Ph. Attender: Siria Hare [facility] Medical 09/09/2020 12:00:00 AM EDT [place] ([facility]) Outpatient Attender: Roya MONIQUE 06/28/2020 08: 52:00 AM EDT [facility] Outpatient Attender: BRIGIDA SO 06/11/2020 09:06:02 AM EDT [facility] Outpatient Attender: BRIGIDA SO 05/28/2020 03:08:00 PM EDT [facility] Outpatient Attender: BRIGIDA SO 05/11/2020 04:22:03 PM EDT [facility] Outpatient Attender: Roya MONIQUE 05/11/2020 04: 22:02 PM EDT [facility] Outpatient 04/28/2020 05:17:00 AM EDT [facility] Outpatient Attender: Roya MONIQUE 04/23/2020 10: 18:00 AM EDT [facility] Outpatient Attender: BRIGIDA Silveira FORWARDER OPERATOR FP 04/23/2020 09:43:00 AM EDT [facility] Outpatient Attender: BRIGIDA Silveira FORWARDER OPERATOR FP 04/07/2020 09:28:00 AM EDT [facility] Outpatient Attender: BRIGIDA Silveira FORWARDER OPERATOR FP 03/29/2020 02:23:01 PM EDT [facility] Outpatient Attender: Roya Silveira FORWARDER OPERATOR-BC FP 03/29/2020 08: 42:00 AM EDT [facility] Outpatient Attender: BRIGIDA Silveira FORWARDER OPERATOR 03/24/2020 02:42:00 PM EDT [facility]/12 11:38:02 AM EDT [facility] Outpatient Attender: FLAQUITO [facility] 03/15/2020 01:24:00 PM EDT [facility] Outpatient Attender: BRIGIDA [facility]veira [facility] 03/08/2020 01:57:01 PM EDT [facility] Medications Medication Brand Name Start Date Product Form Dose Route Admi nistrative Instructions Pharmacy Instructions Status Indications Reaction Description Data Source(s) 20 mg 12/21/2020 12:00:00 AM EST tablet 10 TAKE ONE TABLET BY MOUTH TWICE A DAY FOR 5 DAYS TAKE ONE TABLET BY MOUTH TWICE A DAY FOR 5 DAYS SOLD: 2020 [facility] 875 mg 12/21/2020 12:00:00 AM EST tablet 20 TAKE ONE TABLET BY MOUTH EVERY 12 HOURS FOR 10 DAYS TAKE ONE TABLET BY MOUTH EVERY 12 HOURS FOR 10 DAYS SO LD: 12/21/2020 [facility] Prednisone 20 MG Oral Tablet Prednisone 12/21/2020 12:00:00 AM EST active [facility] ([facility]) Amoxicillin 875 MG Oral Tablet Amoxicillin 12/21/2020 12:00:00 AM EST active [facility] ([facility]) 1,250 mcg (50,000 unit) 11/02/2020 12:00:00 AM EST capsule 4 TAKE ONE CAPSULE BY MOUTH WEEKLY DIRECTED TAKE ONE CAPSULE BY MOUTH WEEKLY DIRE CTED SOLD: 11/02/2020 [facility] 17 gram/dose 11/02/2020 12:00:00 AM EST powder 510 USE DIRECTED BY DOCTOR FOR BOWEL PREP USE DIRECTED BY DOCTOR FOR BOWEL PREP SOLD: 11/02/2020 [facility] POLYETHYLENE GLYCOL 3350 142 MG/ML Oral Solution [Miralax] M iralax 10/20/2020 12:00:00 AM EST active M [facility] ([facility], ) Bisacodyl 5 MG Delayed Release Oral Tablet [Dulcolax] Dulcol ax 10/20/2020 12:00:00 AM EST ORAL active M [facility] ([facility], ) 2 % 09/09/2020 12:00:00 AM EDT [...] FOR 7 DAYS SOLD: 09/10/2020 [facility] Sulfamethoxazole 800 MG / Trimethoprim 1 60 MG Oral Tablet sulfamethoxazole 800 mg-trimethoprim 160 mg tablet TAKE ONE TABLET BY MOUTH EVERY 12 HOURS FOR 7 DAYS sulfamethoxazole 800 mg-trimethoprim 160 mg tablet TAKE ONE TABLET BY MOUTH EVERY 12 HOURS FOR 7 DAYS completed sulfamethoxazole 800 MG / trimethoprim 160 MG Oral Tablet [place] ([facility]) Insurance Providers Payer name Policy type / Coverage type Policy ID Covered green party ID Covered green party's relationship to dawkins Policy Dawkins Plan Information [facility] COMMUNITY PLAN [facility] [id number] SP [id number] [employer]. [id number] Self [id number] [facility] COMMUNITY PLAN [facility] [id number] SP [id number] [place] [id number] SP [id number] Managed Care [facility] Community Plan P [id number] S [id number] Medicaid S [id number] S [id number] [facility]) O [id number] S [id number] Managed Care [facility] Community Plan P [id number] S [id number] [facility] COMMUNITY PLAN [facility] [id number] SP [id number] BENEFIT PLAN [id number] SP [id number] Commercial Self Problems, Conditions, and Diagnoses Code Display Name Description Problem Type Effective Dates Data Source(s) 10746612 Vitamin D deficiency Vitamin D Deficiency Problem 10/20/2020 12:00:00 AM EST [place] ([facility]) 682.5 Cellulitis of buttock Cellulitis of buttock 09:04:25 AM EDT [facility] Z12.11 Screening for malignant neoplasm of colo n Screening for malignant neoplasm of colon 06/11/2020 09:04:25 AM EDT [facility] 578.1 Hematochezia Hematochezia 06/11/2020 09:04:25 A M EDT [facility] [id number] Screening procedure Screening Procedure Problem 0 06/11/2020 12:00:00 AM EDT [place] ([facility]) 08501649 Cellulitis of buttock Cellulitis of Buttock Problem 06/11/2020 12:00:00 AM EDT [place] ([facility]) 7810447 Melena Melena Problem 06/11/2020 12:00:00 AM ED T [place] ([facility]) [id number] Screening procedure Screening Procedure Problem 0 06/11/2020 12:00:00 AM EDT [place] ([facility]) 83279757 Cellulitis of buttock Cellulitis of Buttock Problem 06/11/2020 12:00:00 AM EDT [place] ([facility]) 3612497 Melena Melena Problem 06/11/2020 12:00:00 AM ED T [place] ([facility]) 782.2 Soft tissue swelling Soft tissue swelling 03/15 01:23:07 PM EDT [facility] V85.41 BMI 40.0-44.9 BMI 40.0-44.9 03/15/2020 01:23:07 PM EDT [facility] 278.01 MORBID OBESITY MORBID OBESITY 03/15/2020 01:23: 07 PM EDT [facility] [id number] Prediabetes Prediabetes 03/15/2020 01:23:07 PM EDT [facility] 068314455 Finding of body mass index Finding of Body Mass Index Problem 03/15/2020 12:00:00 AM EDT [place] ([facility]) 941908746 Polyalgia Polyalgia Problem 03/15/2020 12:00:00 AM ED T [place] ([facility]) [id number] Severe obesity Severe Obesity Problem 03/15/2020 12 :00:00 AM EDT [place] ([facility]) 164999850 Finding of body mass index Finding of Body Mass Index Problem 03/15/2020 12:00:00 AM EDT [place] ([facility]) 890717194 Polyalgia Polyalgia Problem 03/15/2020 12:00:00 AM ED T [place] ([facility]) [id number] Severe obesity Severe Obesity Problem 03/15/2020 12 :00:00 AM EDT [place] ([facility]) Results ID Date Data Source [id number] 12/21/2020 12:00:00 AM EST [facility] Name Value Range Interpretation Code Description Data Jadyn rce(s) Supporting Document(s) SARS-CoV2 Rapid Antigen Negative [facility] This lab was reported by [facility]. ID Date Data Source [id number] 11/21/2020 10:00:00 AM EST [facility] Name Value Range Interpretation Code Description Data Jadyn rce(s) Supporting Document(s) SARS coronavirus 2 RNA Not Detected [facility] This lab was ordered by [facility] and reported by [facility]. ID Date Data Source [id number] 09/30/2020 08:30:00 AM EST [facility]) Name Value Range Interpretation Code Description Data Jadyn rce(s) Supporting Document(s) Hemoglobin A1c/Hemoglobin.total in Blood 5.5 % normal Hemoglobin a1C [place] ([facility]) estimated average glucose 111 mg/dL 60-110 Above high norm al Estimated Average Glucose [facility]) ID Date Data Source [id number] 09/30/2020 08:30:00 AM EST [place] ([facility]) Name Value Range Interpretation Code Description Data Jadyn rce(s) Supporting Document(s) total 25(oh) vitamin D 19.3 NG/mL 30.0-100.0 Below low normal T otal 25(Oh) Vitamin D [place] ([facility]) ID Date Data Source [id number] 09/30/2020 08:30:00 AM EST [place] ([facility]) Name Value Range Interpretation Code Description Data Jadyn rce(s) Supporting Document(s) thyroid stimulating hormone 1.090 uIU/mL 0.358-3.740 normal Thyroid Stimulating Hormone [place] ([facility]) free T4 1.00 NG/dL 0.76-1.46 normal Free T4 [place] ([facility]) ID Date Data Source [id number] 09/30/2020 08:30:00 AM EST [place] ([facility]) Name Value Range Interpretation Code Description Data Jadyn rce(s) Supporting Document(s) prostatic specific Ag monitor 1.32 NG/mL < 4.00 normal Prostatic Specific Ag Monitor [place] ([facility]) ID Date Data Source [id number] 09/30/2020 08:30:00 AM EST [place] ([facility]) Name Value Range Interpretation Code Description Data Jadyn rce(s) Supporting Document(s) HDL cholesterol 36 mg/dL >40 Below low normal HDL Cholestero l [place] ([facility]) Cholesterol in LDL [Mass/volume] in Serum or Plasma 158 mg/dL <100 Above high normal LDL Cholesterol [place] ([facility]) triglycerides level 137 mg/dL <150 normal Triglycerides Le sarah [place] ([facility]) cholesterol level 221 mg/dL <200 Above high normal Cholesterol Level [place] ([facility]) non-HDL-C 185 mg/dL normal Non-hdl-c [place] ([facility]) cholesterol risk ratio <5 Above high normal Choles terol Risk Ratio [place] ([facility]) ID Date Data Source [id number] 09/30/2020 08:30:00 AM EST [place] ([facility]) Name Value Range Interpretation Code Description Data Jadyn rce(s) Supporting Document(s) glucose, fasting 88 mg/dL 70-100 normal Glucose, Fasting AT [facility] ([facility]) glomerular filtration rate > 60.0 >56 normal Glomerula r Filtration Rate [place] ([facility]) sodium level 138 mEq/L 136-145 normal Sodium Level [place] (No [facility]) creatinine for GFR 0.80 mg/dL 0.70-1.30 normal Creatinine for GF R [place] ([facility]) blood urea nitrogen 15 mg/dL 7-18 normal Blood Urea Nitro gen [place] ([facility]) carbon dioxide level 29 mEq/L 21-32 normal Carbon Dioxide Level [place] ([facility]) chloride level 105 mEq/L 98-107 normal Chloride Level [place] ([facility]) anion gap 4 mEq/L 8-16 Below low normal Anion Gap [place] ( [facility]) potassium serum 4.5 mEq/L 3.5-5.1 normal Potassium Serum [facility] ([facility]) AST/SGOT 21 U/L 7-37 normal AST/SGOT [place] ([facility]) alkaline phosphatase 67 U/L 45-117 normal Alkaline Phosph atase [place] ([facility]) bilirubin,total 0.4 mg/dL 0.2-1.0 normal Bilirubin,total [facility] ([facility]) calcium level 9.5 mg/dL 8.5-10.1 normal Calcium Level [place] ( [facility]) ALT/SGPT 54 U/L 12-78 normal ALT/SGPT [place] ([facility]) albumin/globulin ratio normal Albumin/globu laila Ratio [place] ([facility]) total protein 7.3 gm/dL 6.4-8.2 normal Total Protein [place] ( [facility]) albumin 3.8 gm/dL 3.2-5.2 normal Albumin [place] ([facility]) ID Date Data Source [id number] 09/30/2020 08:30:00 AM EST [place] ([facility]) Name Value Range Interpretation Code Description Data Jadyn rce(s) Supporting Document(s) hemoglobin 15.1 g/dL 13.5-17.5 normal Hemoglobin [place] ([facility]) white blood count 6.1 10 4.0-10.0 normal White Blood Count [place] ([facility]) red blood count 5.45 10 4.30-6.10 normal Red Blood Count [facility] ([facility]) mean corpuscular volume 88.8 fL 80.0-96.0 normal Mean Corpusc ular Volume [place] ([facility]) mean corpuscular hemoglobin 27.7 pg 27.0-33.0 normal Mean Corpuscular Hemoglobin [place] ([facility]) hematocrit 48.4 % 42.0-52.0 normal Hematocrit [place] ([facility]) mean corpuscular HGB conc 31.2 g/dL 32.0-36.5 Below low neeraj l Mean Corpuscular HGB Conc [place] ([facility]) red cell distribution width 13.4 % 11.5-14.5 normal Red Cell Distribution Width [place] ([facility]) neutrophils % 54.4 % 36.0-66.0 normal Neutrophils % [place] ( [facility]) platelet count, automated 282 10 150-450 normal Platelet C ount, Automated [place] ([facility]) mono % 9.2 % 0.0-5.0 Above high normal [place] % [place] ([facility]) lymph % 32.3 % 24.0-44.0 normal Lymph % [place] ([facility]) eos % 2.6 % 0.0-3.0 normal Eos % [place] ([facility]) baso % 0.8 % 0.0-1.0 normal Baso % [place] ([facility]) immature granulocyte % 0.7 % 0-3.0 normal Immature Gran ulocyte % [place] ([facility]) nucleated red blood cell % 0.0 % 0-0 normal Nucleated Red Blood Cell % [place] ([facility]) neutrophils # 3.3 10 1.5-8.5 normal Neutrophils # [place] ( [facility]) lymph # 2.0 10 1.5-5.0 normal Lymph # [place] ([facility]) eos # 0.2 10 0.0-0.5 normal Eos # [place] ([facility]) baso # 0.1 10 0.0-0.2 normal Baso # [place] ([facility]) mono # 0.6 10 0.0-0.8 normal [place] # [place] ([facility]) ID Date Data Source [id number] 06/11/2020 08:33:24 AM EDT [facility] Measurements & CalculationsHeight: 69 inches (5 [...] is no longer painful. 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 There is no fissure. Anglesmith: María Argueta & Station: normalSkin, Inspection: healing pustule on buttock with slight firm induration, no drainage, no fluctuance, nontender, no excessive warmthOrientation: oriented to time, place, and personJudgment & Insight: intactRate Your HealthIn general, would you say your health is? Very GoodAssessment & Plan Problems:Added: Cellulitis of buttock (ICD-682.5) (YHK61-T11.317) Assessment: Instructions: Likely originated from a plugged [...] worsening symptoms.Screening for malignant neoplasm of colon (NDZ82-R81.11) Assessment: Instructions: As above.Patient Instructions/Care Plan: Cellulitis [...] CAPSULEAllergies:No Known Allergies (updated 06/11/2020) Orders:Gastroenterology Consult [CPT-51586] Adult - Ofc Vst, EST, Level III [CPT-46243] Follow-Up Return to clinic: as needed Clinical Visit Summary Completed Name Value Range Interpretation Code Description Data Jadyn rce(s) Supporting Document(s) ID Date Data Source [id number] 04/23/2020 10:08:53 AM EDT [facility] In-House Blood TestsDate/Time Colle cted: April 23, 2020 10:09 AMTest Result Reference Range Normal ValueComments: blood draw done in offcie done in the right ac tolerated well Jean Marroquin ANATOLY, April 23, 2020 10:09 AMAssessment & Plan Orders:[id number] Vst-Est Level I [CPT-12022] [id number] - Venipuncture [CPT-76982] Name Value Range Interpretation Code Description Data Jadyn rce(s) Supporting Document(s) ID Date Data Source [id number] 04/23/2020 10:05:00 AM EDT [facility] Name Value Range Interpretation Code Description Data Jadyn rce(s) Supporting Document(s) HCT 46.4 % 42.0-52.0 N [facility] HGB 14.8 g/dL 13.5-17.5 N [facility] MCH 31.9 G/DL pg 32.0-36.5 L [facility] MCHC 28.3 PG % 27.0-33.0 [facility] PLATELETS 270 10 10*3/mm3 150-450 [facility] RBC 5.23 10 10*6/mm3 4.30-6.10 [facility] RDW 13.2 % 11.5-14.5 [facility] WBC TOTAL 6.0 4.0-10.0 [facility] ID Date Data Source [id number] 04/23/2020 10:05:00 AM EDT [facility] Name Value Range Interpretation Code Description Data Jadyn rce(s) Supporting Document(s) BG FASTING 97 mg/dL 70-100 N [facility] T4, FREE 0.94 ng/dL 0.76-1.46 N [facility] TSH 0.823 microintl units/mL 0.358-3.[address] [facility] ID Date Data Source [id number] 04/23/2020 10:05:00 AM EDT [facility] Name Value Range Interpretation Code Description Data Jadyn rce(s) Supporting Document(s) HGBA1C 6.1 % N [facility] ID Date Data Source [id number] 03/15/2020 12:59:58 PM EDT [facility] Measurements & CalculationsHeight: 69 inches (5 [...] SARA-2 Score: 0Pain AssessmentPain ScaleNumeric Rating Scale: Location: neck Duration: 2 weeksScreening, Brief Intervention, & [...] during this visit, including review of any vlro-dhk-lbpivan medications, herbal therapies, and/or supplements.Allergy ReviewAllergy List [...] & Plan Problems:Added: MORBID OBESITY (ICD- 278.01) (ZXL41-U37.01) Assessment: Instructions: As above.BMI 40.0-44.9 (ICD-V85.41) (MLM97-V17.41) Assessment: Instructions: As above.Soft tissue swelling (ICD-782.2) (GJS20-D93.89) Assessment: Instructions: Blood work and ultrasound ordered to evaluate further. We will coordinate scheduling this for you.Changed:From: Dx of Hyperglycemia, unspecified (LKM69-G54.9) To: Prediabetes (DNT50-S40.03)Assessed:Hyperlipidemia, unspecified (XPR32-E29.5) Assessment: Instructions: Fasting labs have been ordered [...] minutes throughout the week of cardiovascular exercise.Prediabetes (TIH61-G47.03) Assessment: Instructions: Recommend low carbohydrate diet: reduce pasta, bread, potatoes, rice. If you do eat carbohydrates, better choices are whole wheat and brown rice products. Recommend portion control and avoidance of soda and sugary foods. Increase physical activity and monitor weight. Repeat A1c as ordered.Removed:Reducible umbilical hernia (ICD-553.1) (AJB47-U03.9)Patient Instructions/Care Plan: Hyperlipidemia- unspecified: Fasting labs have [...] Known Allergies (updated 03/15/2020) Orders:COMP METABOLIC PANEL [CPT-18675] CBC W/DIFF [CPT-14564] HgBA1c [CPT- 27276] LIPID PANEL [CPT-89986] TSH [CPT-94458] T-4 free [CPT-37122] Ultrasound, soft tissues of head and neck [CPT-03196] Adult - Ofc Vst, EST, Level III [CPT- 15518] Follow-Up Return to clinic: in 6 months for preventive care visitAdditional Follow-Up: annual PE, labsClinical Visit Summary Comp leted Name Value Range Interpretation Code Description Data Jadyn rce(s) Supporting Document(s) Procedure Vital Signs ID Date Data Source UNK Name Value Range Interpretation Code Description Data Source(s) Body weight 240.00 [lb_av] 240.00 [lb_av] MEDEN T ([facility], [facility]) Body temperature 97.7 [degF] 97.7 [degF] MEDENT ([facility], [facility]) Oxygen saturation in Arterial blood by Pulse oximetry 93 % 93 % MEDENT ([facility], [facility]) Respiratory rate 18 /min 18 /min MEDENT ( [facility], [facility]) Heart rate 64 /min 64 /min MEDENT ([facility], [facility]) Diastolic blood pressure 78 mm[Hg] 78 mm[Hg] MEDENT ([facility]) Systolic blood pressure 115 mm[Hg] 115 mm[Hg] M ISMA ([facility]) Body surface area Derived from formula 2.24 m2 2.24 m2 [facility] ([facility]) Body weight 109.318 kg 109.318 kg [facility] ([facility]) [place] body weight 160 [lb_av] 160 [lb_av] MEDEN T ([facility]) Body mass index (BMI) [Ratio] 35.6 kg/m2 35.6 k g/m2 [facility] ([facility]) Body weight 241.00 [lb_av] 241.00 [lb_av] [facility] ([facility]) Body height 69 [in_i] 69 [in_i] [facility] ([facility]) 5'9" Diastolic blood pressure 84 mm[Hg] 84 mm[Hg] [facility] ([facility]) Systolic blood pressure 130 mm[Hg] 130 mm[Hg] [facility] ([facility]) Body weight 3888 [oz_av] 3888 [oz_av] BELLA ([facility]) Systolic blood pressure 124 mm[Hg] 124 mm[Hg] A [facility] ([facility]) Body mass index (BMI) [Ratio] 35.9 kg/m2 35.9 k g/m2 [place] ([facility]) Body height 69 [in_i] 69 [in_i] BELLA ([facility]) Diastolic blood pressure 83 mm[Hg] 83 mm[Hg] [facility] ([facility]) Body weight 3828 [oz_av] 3828 [oz_av] [facility] ([facility]) Systolic blood pressure 121 mm[Hg] 121 mm[Hg] A [facility] ([facility]) Body mass index (BMI) [Ratio] 35.3 kg/m2 35.3 k g/m2 [facility] ([facility]) Body height 69 [in_i] 69 [in_i] [facility] ([facility]) Diastolic blood pressure 74 mm[Hg] 74 mm[Hg] [facility] ([facility]) Body weight 3828 [oz_av] 3828 [oz_av] [facility] ([facility]) Systolic blood pressure 121 mm[Hg] 121 mm[Hg] A [facility] ([facility]) Body mass index (BMI) [Ratio] 35.3 kg/m2 35.3 k g/m2 [facility] ([facility]) Body height 69 [in_i] 69 [in_i] [facility] ([facility]) Diastolic blood pressure 74 mm[Hg] 74 mm[Hg] [facility] ([facility]) Body weight 3832 [oz_av] 3832 [oz_av] [facility] ([facility]) Systolic blood pressure 133 mm[Hg] 133 mm[Hg] A [facility] ([facility]) Body height 69 [in_i] 69 [in_i] [facility] ([facility]) Diastolic blood pressure 79 mm[Hg] 79 mm[Hg] [facility] ([facility]) Body weight 3832 [oz_av] 3832 [oz_av] [facility] ([facility]) Systolic blood pressure 133 mm[Hg] 133 mm[Hg] A [facility] ([facility]) Body height 69 [in_i] 69 [in_i] [facility]LL[facility] ([facility]) Diastolic blood pressure 79 mm[Hg] 79 mm[Hg] [facility] ([facility]) Body weight 3987.2 [oz_av] 3987.2 [oz_av] ATHEN A ([facility]) Systolic blood pressure 123 mm[Hg] 123 mm[facility]Hg[facility] Body height 69 [in_i] 69 [in_i] BELLA ([facility]) Diastolic blood pressure 80 mm[Hg] 80 mm[Hg] [facility] ([facility]) Body weight 3987.2 [oz_av] 3987.2 [oz_av] ATHEN A ([facility]) Systolic blood pressure 123 mm[Hg] 123 mm[Hg] [facility] Body height 69 [in_i] 69 [in_i] BELLA ([facility]) Diastolic blood pressure 80 mm[Hg] 80 mm[Hg] BELLA ([facility]) Patient Treatment Plan of Care Planned Activity Planned Date Details Description Data Source (s) Sulfamethoxazole 800 MG / Trimethoprim 160 MG Oral Tablet BELLA ([facility])
--- OUTSIDE RECORDS SUMMARY | 2020-12-28 16:23 | CCD | Continuity of Care Document ---
Author Author Peterson PEREIRA Organization Unknown Address [facility] [place] [address] Phone [phone] Problems Description No Information Available Social History Type Date Description Comments Sex Unknown ETOH Use Rarely consumes alcohol Tobacco Use Start: Unknown The patient has never vaped Tobacco Use Start: Unknown End: Unknown Patient is a former smoker quit 30 years Allergies, Adverse Reactions, Alerts Description No Known Drug Allergies Medications Active Medications SIG Qnty Indications Ordering Provide r Date Amoxicillin 875mg Tablets take one tablet every 12 hrs.x 10 days. 20tabs [id number] Vivek Youngblood JR., M.D. 12/21/2020 Prednisone 20mg Tablets take one tablet twice a day x 5 days 10tabs J20.9 Tonya Landry JR. 12/21/2020 Tylenol Unknown Vicks Dayquil Cold & Flu Unknown Immunizations Description No Information Available Vital Signs Date Vital Result Comment 12/21/2020 12:39pm BP Systolic 115 mmHg BP Diastolic 78 mmHg Heart Rate 64 /min Respiratory Rate 18 /min O2 % BldC Oximetry 93 % Body Temperature 97.7 F Weight 240.00 lb Pain Level 4 Results Description No Information Available Procedures Description No Information Available Medical Devices Description No Information Available Encounters Type Date Location Provider Dx Diagnosis Office Visit 12/21/2020 1:20p Main Office [facility] Matias J20 .9 Acute bronchitis, unspecified Z20.828 Contact w and exposure to ot h viral communicable diseases Assessments Date Code Description Provider 12/21/2020 J20.9 Acute bronchitis, unspecified Mi CY Yoon 12/21/2020 Z20.828 Contact with and (enriquez spected) exposure to other viral communicable diseases [facility] Matias Plan of Treatment No Information Available Functional Status Description No Information Available Mental Status Description No Information Available Referrals Description No Information Available
--- OUTSIDE RECORDS SUMMARY | 2020-12-28 16:23 | CCD | Continuity of Care Document ---
Author Author Peterson PEREIRA Organization Unknown [place] [place] [address] Phone [phone] Problems Description No Information Available Social History [...]
[2020-12-28] MEDS ORDERED: ACET-897 PO (16:31)
[2020-12-28] MEDS ORDERED: NS 500 ML IV ONE (17:30)
--- OUTSIDE RECORDS SUMMARY | 2020-12-28 17:36 | CCD ---
Author Author [facility] Organization [facility] Address Unknown Phone Unavailable Care Team Providers Care Preservationist Name Role Phone Arpita Lucio MD Unavailable [...] Arpita Lucio MD Unavailable Unavailable Roya Silveira SENSITIZED PAPER TESTER SENSITIZED PAPER TESTER Unavailable Unavailable Payam, A Siria SENSITIZED PAPER TESTER Unavailable Unavailable Payam, A Siria SENSITIZED PAPER TESTER Unavailable Unavailable Payam, A Siria SENSITIZED PAPER TESTER Unavailable Unavailable Payam, A Siria SENSITIZED PAPER TESTER Unavailable Unavailable Payam, A Siria SENSITIZED PAPER TESTER Unavailable Unavailable Payam, A Siria SENSITIZED PAPER TESTER Unavailable Unavailable Payam, A Siria SENSITIZED PAPER TESTER Unavailable Unavailable Payam, A Siria SENSITIZED PAPER TESTER Unavailable Unavailable Payam, A Siria SENSITIZED PAPER TESTER Unavailable Unavailable [place], A Siria SENSITIZED PAPER TESTER Unavailable Unavailable [place], A Siria SENSITIZED PAPER TESTER Unavailable Unavailable [place], A Siria SENSITIZED PAPER TESTER Unavailable Unavailable [place], A Siria SENSITIZED PAPER TESTER Unavailable Unavailable [place], A Siria SENSITIZED PAPER TESTER Unavailable Unavailable [place], A Siria SENSITIZED PAPER TESTER Unavailable Unavailable [place], A Siria SENSITIZED PAPER TESTER Unavailable Unavailable [place], A Siria SENSITIZED PAPER TESTER Unavailable Unavailable [place], A Siria SENSITIZED PAPER TESTER Unavailable Unavailable [place], A Siria SENSITIZED PAPER TESTER Unavailable Unavailable [place], A Siria SENSITIZED PAPER TESTER Unavailable Unavailable [place], A Siria SENSITIZED PAPER TESTER Unavailable Unavailable [place], A Siria SENSITIZED PAPER TESTER Unavailable Unavailable [place], A Siria SENSITIZED PAPER TESTER Unavailable Unavailable [place], A Siria SENSITIZED PAPER TESTER Unavailable Unavailable [place], A Siria SENSITIZED PAPER TESTER Unavailable Unavailable [place], A Siria SENSITIZED PAPER TESTER Unavailable Unavailable [place], A Siria SENSITIZED PAPER TESTER Unavailable Unavailable Payam, A Siria SENSITIZED PAPER TESTER Unavailable Unavailable Silveira, F Roya SENSITIZED PAPER TESTER-BC Unavailable Unavailable Silveira, F Roya SENSITIZED PAPER TESTER-BC Unavailable Unavailable Silveira, F Roya SENSITIZED PAPER TESTER-BC Unavailable Unavailable Silveira, F Roya SENSITIZED PAPER TESTER-BC Unavailable Unavailable Silveira, F Roya SENSITIZED PAPER TESTER-BC Unavailable Unavailable Silveira, F Roya SENSITIZED PAPER TESTER-BC Unavailable Unavailable Silveira, F Roya SENSITIZED PAPER TESTER-BC Unavailable Unavailable Silveira, F Roya SENSITIZED PAPER TESTER-BC Unavailable Unavailable Silveira, F Roya SENSITIZED PAPER TESTER-BC Unavailable Unavailable Silveira, F Roya SENSITIZED PAPER TESTER-BC Unavailable Unavailable Silveira, F Roya SENSITIZED PAPER TESTER-BC Unavailable Unavailable Silveira, F Roya SENSITIZED PAPER TESTER-BC Unavailable Unavailable Silveira, F Roya SENSITIZED PAPER TESTER-BC Unavailable Unavailable Silveira, F Roya SENSITIZED PAPER TESTER-BC Unavailable Unavailable Silveira, F Roya SENSITIZED PAPER TESTER-BC Unavailable Unavailable Silveira, F Roya SENSITIZED PAPER TESTER-BC Unavailable Unavailable Silveira, F Roya SENSITIZED PAPER TESTER-BC Unavailable Unavailable Silveira, F Roya SENSITIZED PAPER TESTER-BC Unavailable Unavailable Silveira, F Roya SENSITIZED PAPER TESTER-BC Unavailable Unavailable Silveira, F Roya SENSITIZED PAPER TESTER-BC Unavailable Unavailable Silveira, F Roya SENSITIZED PAPER TESTER-BC Unavailable Unavailable Silveira, F Roya SENSITIZED PAPER TESTER-BC Unavailable Unavailable STEELE, YANICK FLAQUITO RPA-C Unavailable [...] STEELE, YANICK FLAQUITO RPA-C Unavailable Unavailable STEELE, YANIKC FLAQUITO RPA-C Unavailable Unavailable STEELE, YANICK FLAQUITO [...] A PHOEBE PA Unavailable Unavailable LETTIERE, A PHOEEB PA Unavailable Unavailable LETTIERE, A PHOEBE PA [...] is protected by Article 27-F of the [facility] Public Health law. If you continue you may have access to information: Regarding HIV / AIDS; Provided by facilities licensed or operated by the [facility] Office of Mental Health; or Provided by the [facility] Office for People With Developmental Disabilities. If such information is present, then the following [facility] mandated warning applies: This information has been [...] law may result in a fine or snf sentence or both. A general authorization for [...] EST - 12/28/2020 11:42:16 AM EST DocuTap ([facility] ) Office Visit Attender: PHOEBE sahni 12/21/2020 12:20:00 PM EST MEDENT ([facility]) KATHLEEN StevensonBC: [address] [place] [address], Ph. Attender: Siria Hare [facility] Medical 10/18/2020 12:00:00 AM EST Procedure by Method [facility] ([facility]) Procedure by Method Frederick Lucio MD: [address] [place] [address], Ph. Attender: Frederick Lucio MD [facility] Medical 09/30/2020 12:00:00 AM EST BELLA ([facility]) KATHLEEN Stevenson: [address] [place] [address], Ph. Attender: Siria Hare [facility] Medical 09/09/2020 12:00:00 AM EDT BELLA ([facility]) KATHLEEN Stevenson: [address] [place] [address], Ph. Attender: Siria Hare [facility] Medical 09/09/2020 12:00:00 AM EDT BELLA ([facility]) Outpatient Attender: Roya MONIQUE 06/28/2020 08: 52:00 AM EDT [facility] Outpatient Attender: BRIGIDA SO 06/11/2020 09:06:02 AM EDT [facility] Outpatient Attender: BRIGIDA SO 05/28/2020 03:08:00 PM EDT [facility] Outpatient Attender: BRIGIDA SO 05/11/2020 04:22:03 PM EDT [facility] Outpatient Attender: Roya MONIQUE 05/11/2020 04: 22:02 PM EDT [facility] Outpatient 04/28/2020 05:17:00 AM EDT [facility] Outpatient Attender: Roya MONIQUE 04/23/2020 10: 18:00 AM EDT [facility] Outpatient Attender: BRIGIDA Silveira SENSITIZED PAPER TESTER FP 04/23/2020 09:43:00 AM EDT [facility] Outpatient Attender: BRIGIDA Silveira SENSITIZED PAPER TESTER FP 04/07/2020 09:28:00 AM EDT [facility] Outpatient Attender: BRIGIDA Silveira SENSITIZED PAPER TESTER FP 03/29/2020 02:23:01 PM EDT [facility] Outpatient Attender: Roya Silveira SENSITIZED PAPER TESTER-BC FP 03/29/2020 08: 42:00 AM EDT [facility] Outpatient Attender: BRIGIDA Silveira SENSITIZED PAPER TESTER 03/24/2020 02:42:00 PM EDT [facility] 03/12 11:38:02 AM EDT [facility] 03/15/2020 01:24:00 PM EDT [facility] Outpatient Attender: BRIGIDA Silveira SENSITIZED [facility] 03/08/2020 01:57:01 PM EDT [facility] Medications Medication Brand Name Start Date Product [...] Prednisone 12/21/2020 12:00:00 AM EST active MEDENT ([facility]) Amoxicillin 875 MG Oral Tablet Amoxicillin 12/21/2020 12:00:00 AM EST active MEDENT ([facility]) 1,250 mcg (50,000 unit) 11/02/2020 12:00:00 [...] 10/20/2020 12:00:00 AM EST active M EDENT ([facility], ) Bisacodyl 5 MG Delayed Release Oral Tablet [Dulcolax] Dulcol ax 10/20/2020 12:00:00 AM EST ORAL active M EDENT ([facility], ) 2 % 09/09/2020 12:00:00 AM EDT [...] MG / trimethoprim 160 MG Oral Tablet [facility] ([facility]) Insurance Providers Payer name Policy type / Coverage type Policy ID Covered constitution party ID Covered constitution party's relationship to dawkins Policy Dawkins Plan Information [facility] COMMUNITY PLAN [facility] [id number] SP [id number] [employer] Commercial Insurance Co. [id number] Self [id number] [facility] COMMUNITY PLAN [facility] [id number] SP [id number] [place] [id number] SP [id number] Managed Care [facility] Community Plan P [id number] S [id number] Medicaid S [id number] S [id number] [facility]) O [id number] S [id number] Managed Care [facility] Community Plan P [id number] S [id number] [facility] COMMUNITY PLAN [facility] [id number] SP [id number] [facility] BENEFIT PLAN [id number] SP [id number] Commercial Self Problems, Conditions, and Diagnoses Code Display Name Description Problem Type Effective Dates Data Source(s) 83508205 Vitamin D deficiency Vitamin D Deficiency Problem 10/20/2020 12:00:00 AM EST BELLA ([facility]) 682.5 Cellulitis of buttock Cellulitis of buttock 09:04:25 AM EDT [facility] Z12.11 Screening for malignant neoplasm of colo n Screening for malignant neoplasm of colon 06/11/2020 09:04:25 AM EDT [facility] 578.1 Hematochezia Hematochezia 06/11/2020 09:04:25 A M EDT [facility] [id number] Screening procedure Screening Procedure Problem 0 06/11/2020 12:00:00 AM EDT BELLA ([facility]) 05345678 Cellulitis of buttock Cellulitis of Buttock Problem 06/11/2020 12:00:00 AM EDT BELLA ([facility]) 3650229 Melena Melena Problem 06/11/2020 12:00:00 AM ED T BELLA ([facility]) 13383158 Screening procedure Screening Procedure Problem 0 06/11/2020 12:00:00 AM EDT BELLA ([facility]) 29742156 Cellulitis of buttock Cellulitis of Buttock Problem 06/11/2020 12:00:00 AM EDT BELLA ([facility]) 2931993 Melena Melena Problem 06/11/2020 12:00:00 AM ED T BE[facility]A ([facility]) 782.2 Soft tissue swelling Soft tissue swelling 03/15 01:23:07 PM EDT [facility] V85.41 BMI 40.0-44.9 BMI 40.0-44.9 03/15/2020 01:23:07 PM EDT [facility] 278.01 MORBID OBESITY MORBID OBESITY 03/15/2020 01:23: 07 PM EDT [facility] [id number] Prediabetes Prediabetes 03/15/2020 01:23:07 PM EDT [facility] 971854847 Finding of body mass index Finding of Body Mass Index Problem 03/15/2020 12:00:00 AM EDT [place] ([facility]) 166208097 Polyalgia Polyalgia Problem 03/15/2020 12:00:00 AM ED T BELLA ([facility]) [id number] Severe obesity Severe Obesity Problem 03/15/2020 12 :00:00 AM EDT [place] ([facility]) 794798070 Finding of body mass index Finding of Body Mass Index Problem 03/15/2020 12:00:00 AM EDT BELLA ([facility]) 665300214 Polyalgia Polyalgia Problem 03/15/2020 12:00:00 AM ED T BELLA ([facility]) [id number] Severe obesity Severe Obesity Problem 03/15/2020 12 :00:00 AM EDT [place] ([facility]) Results ID Date Data Source [id number] 12/21/2020 12:00:00 AM EST [facility] Name Value Range Interpretation Code Description Data Jadyn rce(s) Supporting Document(s) SARS-CoV2 Rapid Antigen Negative [facility] This lab was reported by [facility]. ID Date Data Source [id number] 11/21/2020 10:00:00 AM EST [facility] Name Value Range Interpretation Code Description Data Jadyn rce(s) Supporting Document(s) SARS coronavirus 2 RNA Not Detected [facility] This lab was ordered by [facility] and reported by [facility]. ID Date Data Source [id number] 09/30/2020 08:30:00 AM EST [facility]) Name Value Range Interpretation Code Description Data Jadyn rce(s) Supporting Document(s) Hemoglobin A1c/Hemoglobin.total in Blood 5.5 % normal Hemoglobin a1C [place] ([facility]) estimated average glucose 111 mg/dL 60-110 Above high norm al Estimated Average Glucose [facility]) ID Date Data Source [id number] 09/30/2020 08:30:00 AM EST [place] ([facility]) Name Value Range Interpretation Code Description Data Jadyn rce(s) Supporting Document(s) total 25(oh) vitamin D 19.3 NG/mL 30.0-100.0 Below low normal T otal 25(Oh) Vitamin D BELLA ([facility]) ID Date Data Source [id number] 09/30/2020 08:30:00 AM EST [facility] ([facility]) Name Value Range Interpretation Code Description Data Jadyn rce(s) Supporting Document(s) thyroid stimulating hormone 1.090 uIU/mL 0.358-3.740 normal Thyroid Stimulating Hormone [facility] ([facility]) free T4 1.00 NG/dL 0.76-1.46 normal Free T4 [facility] ([facility]) ID Date Data Source [id number] 09/30/2020 08:30:00 AM EST [facility] ([facility]) Name Value Range Interpretation Code Description Data Jadyn rce(s) Supporting Document(s) prostatic specific Ag monitor 1.32 NG/mL < 4.00 normal Prostatic Specific Ag Monitor [facility] ([facility]) ID Date Data Source [id number] 09/30/2020 08:30:00 AM EST [facility] ([facility]) Name Value Range Interpretation Code Description Data Jadyn rce(s) Supporting Document(s) HDL cholesterol 36 mg/dL >40 Below low normal HDL Cholestero l [facility] ([facility]) Cholesterol in LDL [Mass/volume] in Serum or Plasma 158 mg/dL <100 Above high normal LDL Cholesterol [facility] ([facility]) triglycerides level 137 mg/dL <150 normal Triglycerides Le sarah [facility] ([facility]) cholesterol level 221 mg/dL <200 Above high normal Cholesterol Level [facility] ([facility]) non-HDL-C 185 mg/dL normal Non-hdl-c [facility] ([facility]) cholesterol risk ratio <5 Above high normal Choles terol Risk Ratio [facility] ([facility]) ID Date Data Source [id number] 09/30/2020 08:30:00 AM EST [facility] ([facility]) Name Value Range Interpretation Code Description Data Jadyn rce(s) Supporting Document(s) glucose, fasting 88 mg/dL 70-100 normal Glucose, Fasting AT DEONTE ([facility]) glomerular filtration rate > 60.0 >56 normal Glomerula r Filtration Rate [facility] ([facility]) sodium level 138 mEq/L 136-145 normal Sodium Level BE[facility]A ([facility]) creatinine for GFR 0.80 mg/dL 0.70-1.30 normal Creatinine for GF R BE[facility] ([facility]) blood urea nitrogen 15 mg/dL 7-18 normal Blood Urea Nitro gen [facility] ([facility]) carbon dioxide level 29 mEq/L 21-32 normal Carbon Dioxide Level [facility] ([facility]) chloride level 105 mEq/L 98-107 normal Chloride Level [place] ([facility]) anion gap 4 mEq/L 8-16 Below low normal Anion Gap BE[facility]A ( [facility]) potassium serum 4.5 mEq/L 3.5-5.1 normal Potassium Serum ATHE ([facility]) AST/SGOT 21 U/L 7-37 normal AST/SGOT [facility] ([facility]) alkaline phosphatase 67 U/L 45-117 normal Alkaline Phosph atase [facility] ([facility]) bilirubin,total 0.4 mg/dL 0.2-1.0 normal Bilirubin,total ATHE ([facility]) calcium level 9.5 mg/dL 8.5-10.1 normal Calcium Level BE[facility]A ( [facility]) ALT/SGPT 54 U/L 12-78 normal ALT/SGPT [facility] ([facility]) albumin/globulin ratio normal Albumin/globu laila Ratio [facility] ([facility]) total protein 7.3 gm/dL 6.4-8.2 normal Total Protein [facility] ( [facility]) albumin 3.8 gm/dL 3.2-5.2 normal Albumin [facility] ([facility]) ID Date Data Source [id number] 09/30/2020 08:30:00 AM EST [facility] ([facility]) Name Value Range Interpretation Code Description Data Jadyn rce(s) Supporting Document(s) hemoglobin 15.1 g/dL 13.5-17.5 normal Hemoglobin [facility] ([facility]) white blood count 6.1 10 4.0-10.0 normal White Blood Count [facility] ([facility]) red blood count 5.45 10 4.30-6.10 normal Red Blood Count ATHE ([facility]) mean corpuscular volume 88.8 fL 80.0-96.0 normal Mean Corpusc ular Volume [facility] ([facility]) mean corpuscular hemoglobin 27.7 pg 27.0-33.0 normal Mean Corpuscular Hemoglobin [facility] ([facility]) hematocrit 48.4 % 42.0-52.0 normal Hematocrit [facility] ([facility]) mean corpuscular HGB conc 31.2 g/dL 32.0-36.5 Below low neeraj l Mean Corpuscular HGB Conc [facility] ([facility]) red cell distribution width 13.4 % 11.5-14.5 normal Red Cell Distribution Width [facility] ([facility]) neutrophils % 54.4 % 36.0-66.0 normal Neutrophils % [place] ( [facility]) platelet count, automated 282 10 150-450 normal Platelet C ount, Automated [place] ([facility]) mono % 9.2 % 0.0-5.0 Above high normal [place] % [facility] ([facility]) lymph % 32.3 % 24.0-44.0 normal Lymph % [facility] ([facility]) eos % 2.6 % 0.0-3.0 normal Eos % [facility] ([facility]) baso % 0.8 % 0.0-1.0 normal Baso % [facility] ([facility]) immature granulocyte % 0.7 % 0-3.0 normal Immature Gran ulocyte % [facility] ([facility]) nucleated red blood cell % 0.0 % 0-0 normal Nucleated Red Blood Cell % [facility] ([facility]) neutrophils # 3.3 10 1.5-8.5 normal Neutrophils # [facility] ( [facility]) lymph # 2.0 10 1.5-5.0 normal Lymph # [facility] ([facility]) eos # 0.2 10 0.0-0.5 normal Eos # [facility] ([facility]) baso # 0.1 10 0.0-0.2 normal Baso # [facility] ([facility]) mono # 0.6 10 0.0-0.8 normal [place] # [facility] ([facility]) ID Date Data Source [id number] 06/11/2020 08:33:24 AM EDT [facility] Measurements & CalculationsHeight: 69 inches (5 ft. [...] during this visit, including review of any zyhs-xli-dyaqfuh medications, herbal therapies, and/or supplements.Allergy ReviewAllergy List [...] thickening or masses. There is no fissure. Fine Jewelry Sales Associate: María Argueta & Station: normalSkin, Inspection: healing pustule on buttock with slight firm induration, no drainage, no fluctuance, nontender, no excessive warmthOrientation: oriented to time, place, and personJudgment & Insight: intactRate Your HealthIn general, would you say your health is? Very GoodAssessment & Plan Problems:Added: Cellulitis of buttock (ICD-682.5) (VDY85-X60.317) Assessment: Instructions: Likely originated from a plugged [...] worsening symptoms.Screening for malignant neoplasm of colon (LSX50-Q96.11) Assessment: Instructions: As above.Patient Instructions/Care Plan: Cellulitis [...] CAPSULEAllergies:No Known Allergies (updated 06/11/2020) Orders:Gastroenterology Consult [CPT-97469] Adult - Ofc Vst, EST, Level III [CPT-66997] Follow-Up Return to clinic: as needed Clinical Visit Summary Completed Name Value Range Interpretation Code Description Data Jadyn rce(s) Supporting Document(s) ID Date Data Source [id number] 04/23/2020 10:08:53 AM EDT [facility] Labs In-House Blood TestsDate/Time Colle cted: April 23, 2020 10:09 AMTest Result Reference Range Normal ValueComments: blood draw done in offcie done in the right ac tolerated well Jean Marroquin ANATOLY, April 23, 2020 10:09 AMAssessment & Plan Orders:[id number] Vst-Est Level I [CPT-60747] 72373 - Venipuncture [CPT-38436] Name Value Range Interpretation Code Description Data Jadyn rce(s) Supporting Document(s) ID Date Data Source [id number] 04/23/2020 10:05:00 AM EDT [facility] Name Value Range Interpretation Code Description Data Jadyn rce(s) Supporting Document(s) HCT 46.4 % 42.0-52.0 N [facility] HGB 14.8 g/dL 13.5-17.5 N [facility] MCH 31.9 G/DL pg 32.0-36.5 L [facility] MCHC 28.3 PG % 27.0-33.0 N [facility] PLATELETS 270 10 10*3/mm3 150-450 N [facility] RBC 5.23 10 10*6/mm3 4.30-6.10 N [facility] RDW 13.2 % 11.5-14.5 [facility] WBC TOTAL 6.0 4.0-10.0 N [facility] ID Date Data Source [id number] 04/23/2020 10:05:00 AM EDT [facility] Name Value Range Interpretation Code Description Data Jadyn rce(s) Supporting Document(s) BG FASTING 97 mg/dL 70-100 N [facility] T4, FREE 0.94 ng/dL 0.76-1.46 N [facility] y Health TSH 0.823 microintl units/mL 0.358-3.740 N [facility] ID Date Data Source [id number] 04/23/2020 10:05:00 AM EDT [facility] Name Value Range Interpretation Code Description Data Jadyn rce(s) Supporting Document(s) HGBA1C 6.1 % [facility] ID Date Data Source [id number] 03/15/2020 12:59:58 PM EDT [facility] Measurements & CalculationsHeight: 69 inches (5 ft. [...] during this visit, including review of any cjgb-zxn-vdygmvc medications, herbal therapies, and/or supplements.Allergy ReviewAllergy List [...] & Plan Problems:Added: MORBID OBESITY (ICD- 278.01) (XSK47-S67.01) Assessment: Instructions: As above.BMI 40.0-44.9 (ICD-V85.41) (FTK20-U37.41) Assessment: Instructions: As above.Soft tissue swelling (ICD-782.2) (SBI87-J41.89) Assessment: Instructions: Blood work and ultrasound ordered to evaluate further. We will coordinate scheduling this for you.Changed:From: Dx of Hyperglycemia, unspecified (XEO01-F77.9) To: Prediabetes (QQE84-T81.03)Assessed:Hyperlipidemia, unspecified (GNB70-D92.5) Assessment: Instructions: Fasting labs have been ordered [...] minutes throughout the week of cardiovascular exercise.Prediabetes (XOA07-V28.03) Assessment: Instructions: Recommend low carbohydrate diet: reduce pasta, bread, potatoes, rice. If you do eat carbohydrates, better choices are whole wheat and brown rice products. Recommend portion control and avoidance of soda and sugary foods. Increase physical activity and monitor weight. Repeat A1c as ordered.Removed:Reducible umbilical hernia (ICD-553.1) (WNW39-M95.9)Patient Instructions/Care Plan: Hyperlipidemia- unspecified: Fasting labs have [...] Known Allergies (updated 03/15/2020) Orders:COMP METABOLIC PANEL [CPT-76554] CBC W/DIFF [CPT-47627] HgBA1c [CPT- 00593] LIPID PANEL [CPT-20083] TSH [CPT-03262] T-4 free [CPT-42889] Ultrasound, soft tissues of head and neck [CPT-95810] Adult - Ofc Vst, EST, Level III [CPT- 20352] Follow-Up Return to clinic: in 6 months for preventive care visitAdditional Follow-Up: annual PE, labsClinical Visit Summary Comp leted Name Value Range Interpretation Code Description Data Jadyn rce(s) Supporting Document(s) Procedure Vital Signs ID Date Data Source UNK Name Value Range Interpretation Code Description Data Source(s) Body weight 240.00 [lb_av] 240.00 [lb_av] MEDEN T ([facility]) Body temperature 97.7 [degF] 97.7 [degF] MEDENT ([facility]) Oxygen saturation in Arterial blood by Pulse oximetry 93 % 93 % MEDENT ([facility]) Respiratory rate 18 /min 18 /min MEDENT ( [facility], [facility]) Heart rate 64 /min 64 /min MEDENT ([facility], [facility]) Diastolic blood pressure 78 mm[Hg] 78 mm[Hg] MEDENT ([facility]) Systolic blood pressure 115 mm[Hg] 115 mm[Hg] M ISMA ([facility]) Body surface area Derived from formula 2.[address] [facility] ([facility]) Body weight 109.[address] [facility] ([facility]) [place] body weight 160 [lb_av] 160 [lb_av] MEDEN T ([facility]) Body mass index (BMI) [Ratio] 35.6 kg/m2 35.6 k g/m2 [facility] ([facility]) Body weight 241.00 [lb_av] 241.00 [facility]lb_av] [facility] Body height 69 [in_i] 69 [in_i] [facility] ([facility]) 5'9" Diastolic blood pressure 84 mm[Hg] 84 mm[Hg] [facility] ([facility]) Systolic blood pressure 130 mm[Hg] 130 mm[Hg] [facility] ([facility]) Body weight 3888 [oz_av] 3888 [oz_av] [place] ([facility]) Systolic blood pressure 124 mm[Hg] 124 mm[Hg] A [facility] ([facility]) Body mass index (BMI) [Ratio] 35.9 kg/m2 35.9 k g/m2 [place] ([facility]) Body height 69 [in_i] 69 [in_i] [place] ([facility]) Diastolic blood pressure 83 mm[Hg] 83 mm[Hg] [place] ([facility]) Body weight 3828 [oz_av] 3828 [oz_av] [place] ([facility]) Systolic blood pressure 121 mm[Hg] 121 mm[Hg] A [facility] ([facility]) Body mass index (BMI) [Ratio] 35.3 kg/m2 35.3 k g/m2 [place] ([facility]) Body height 69 [in_i] 69 [in_i] [place] ([facility]) Diastolic blood pressure 74 mm[Hg] 74 mm[Hg] [place] ([facility]) Body weight 3828 [oz_av] 3828 [oz_av] [place] ([facility]) Systolic blood pressure 121 mm[Hg] 121 mm[Hg] A [facility] ([facility]) Body mass index (BMI) [Ratio] 35.3 kg/m2 35.3 k g/m2 [place] ([facility]) Body height 69 [in_i] 69 [in_i] [place] ([facility]) Diastolic blood pressure 74 mm[Hg] 74 mm[Hg] [place] ([facility]) Body weight 3832 [oz_av] 3832 [oz_av] [place] ([facility]) Systolic blood pressure 133 mm[Hg] 133 mm[Hg] A [facility] ([facility]) Body height 69 [in_i] 69 [in_i] [place] ([facility]) Diastolic blood pressure 79 mm[Hg] 79 mm[Hg] [place] ([facility]) Body weight 3832 [oz_av] 3832 [oz_av] [place] ([facility]) Systolic blood pressure 133 mm[Hg] 133 mm[Hg] A [facility] ([facility]) Body height 69 [in_i] 69 [in_i] [place] ([facility]) Diastolic blood pressure 79 mm[Hg] 79 mm[Hg] [place] ([facility]) Body weight 3987.2 [oz_av] 3987.2 [oz_av] ATHEN A ([facility]) Systolic blood pressure 123 mm[Hg] 123 mm[Hg] [facility] ([facility]) Body height 69 [in_i] 69 [in_i] [place] ([facility]) Diastolic blood pressure 80 mm[Hg] 80 mm[Hg] [place] ([facility]) Body weight 3987.2 [oz_av] 3987.2 [oz_av] ATHEN A ([facility]) Systolic blood pressure 123 mm[Hg] 123 mm[Hg] [facility] ([facility]) Body height 69 [in_i] 69 [in_i] [facility] ([facility]) Diastolic blood pressure 80 mm[Hg] 80 mm[Hg] [facility] ([facility]) Patient Treatment Plan of Care Planned Activity Planned Date Details Description Data Source (s) Sulfamethoxazole 800 MG / Trimethoprim 160 MG Oral Tablet [place] ([facility])
[2020-12-28] MEDS: COMBIVENT RESPIMAT 100-20MCG INHALER 4GM INH SCH ×3 (17:46→18:06)
[2020-12-28 18:34] LABS: BASO # 0.2 10^3/uL (0.0-0.2); BASO % 1.5 % (0.0-1.0); EOS # 0.3 10^3/uL (0.0-0.5); EOS % 2.6 % (0.0-3.0); HEMATOCRIT 46.7 % (42.0-52.0); HEMOGLOBIN 14.8 g/dl (13.5-17.5); LYMPH # 2.7 10^3/uL (1.5-5.0); LYMPH % 20.5 % (24.0-44.0); MEAN CORPUSCULAR HEMOGLOBIN 27.8 pg (27.0-33.0); MEAN CORPUSCULAR HGB CONC 31.7 g/dl (32.0-36.5); MEAN CORPUSCULAR VOLUME 87.8 fl (80.0-96.0); MONO # 1.1 10^3/uL (0.0-0.8); MONO % 8.8 % (2.0-8.0); NEUTROPHILS # 7.3 10^3/uL (1.5-8.5); NEUTROPHILS % 56.2 % (36.0-66.0); PLATELET COUNT, AUTOMATED 356 10^3/uL (150-450); RED BLOOD COUNT 5.32 10^6/uL (4.30-6.10); WHITE BLOOD COUNT 12.9 10^3/uL (4.0-10.0)
--- NOTE | 2020-12-28 18:39 | REP ---
INDICATION: COUGH, SOB. COMPARISON: No comparison chest x-ray.. TECHNIQUE: Portable upright AP radiograph. FINDINGS: Right hemidiaphragm is somewhat elevated. Heart is not felt to be enlarged. Pulmonary vasculature is not increased. Pleural angles are sharp. There are extensive patchy bilateral infiltrates in the lung [place] consistent with patchy bilateral pneumonia, possibly viral pneumonia. IMPRESSION: Extensive bilateral patchy interstitial infiltrates. Possible viral pneumonia. <Electronically signed by Wilmar Saab > 12/28/20 [id number]
[2020-12-28 19:09] LABS: CPK CREATINE PHOSPHOKINASE 74 U/L (39-308); NT-PRO BNP 30 PG/ML (<125); TROPONIN I < 0.02 NG/ML (< 0.10)
[2020-12-28 19:49] LABS: PROTHROMBIN TIME 13.4 SECONDS (12.5-14.3)
--- NOTE | 2020-12-28 19:53 | ECGEPIP ---
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
[2020-12-28 23:22] VITALS: BP 130/72
== END 2020-12-28 23:27 | disposition short-term general hospital (02) ==
LOC: M ED 16:15
DX: U07.1 COVID-19 (principal); R20.9 Unspecified disturbances of skin sensation; R94.31 Abnormal electrocardiogram [ECG] [EKG]; R91.8 Other nonspecific abnormal finding of lung field
CPT/HCPCS: 71045; 80047; 82550; 82553; 83880; 85025; 85610; 85730; 93005; 94640; 96360; 99284; U0002

== ENCOUNTER → 2021-01-31 | Outpatient (REF) | payer OTHER ==
[~2021-01-31] MED LIST changes: +ACET-897 PO
[2021-01-31 13:40] LABS: BASO # 0.1 10^3/uL (0.0-0.2); BASO % 0.7 % (0.0-1.0); EOS # 1.3 10^3/uL (0.0-0.5); EOS % 17.9 % (0.0-3.0); HEMATOCRIT 47.2 % (42.0-52.0); HEMOGLOBIN 15.2 g/dl (13.5-17.5); LYMPH # 2.4 10^3/uL (1.5-5.0); LYMPH % 31.7 % (24.0-44.0); MEAN CORPUSCULAR HEMOGLOBIN 28.3 pg (27.0-33.0); MEAN CORPUSCULAR HGB CONC 32.2 g/dl (32.0-36.5); MEAN CORPUSCULAR VOLUME 87.7 fl (80.0-96.0); MONO # 0.6 10^3/uL (0.0-0.8); MONO % 8.1 % (2.0-8.0); NEUTROPHILS % 40.8 % (36.0-66.0); PLATELET COUNT, AUTOMATED 310 10^3/uL (150-450); RED BLOOD COUNT 5.38 10^6/uL (4.30-6.10); WHITE BLOOD COUNT 7.4 10^3/uL (4.0-10.0)
[2021-01-31 15:02] LABS: ALBUMIN 4.1 GM/DL (3.2-5.2); ALT/SGPT 66 U/L (12-78); BILIRUBIN,TOTAL 0.6 MG/DL (0.2-1.0); BLOOD UREA NITROGEN 14 MG/DL (7-18); CALCIUM LEVEL 9.5 MG/DL (8.5-10.1); CARBON DIOXIDE LEVEL 23 MEQ/L (21-32); CHLORIDE LEVEL 103 MEQ/L (98-107); CHOLESTEROL LEVEL 213 MG/DL (<200); CHOLESTEROL RISK RATIO 5.325 (<5); CREATININE FOR GFR 0.65 MG/DL (0.70-1.30); GLOMERULAR FILTRATION RATE > 60.0 (>56); GLUCOSE, FASTING 102 MG/DL (70-100); HDL CHOLESTEROL 40 MG/DL (>40); LDL CHOLESTEROL 151 MG/DL (<100); NON-HDL-C 173 MG/DL; POTASSIUM SERUM 4.4 MEQ/L (3.5-5.1); SODIUM LEVEL 137 MEQ/L (136-145); TOTAL 25(OH) VITAMIN D 26.8 NG/ML (30.0-100.0); TOTAL PROTEIN 7.3 GM/DL (6.4-8.2); TRIGLYCERIDES LEVEL 112 MG/DL (<150)
== END ==
LOC: M LAB REF 11:22
PROVIDERS: ATTEND Nurse Practitioner Family
DX: E78.5 Hyperlipidemia, unspecified (principal); E55.9 Vitamin D deficiency, unspecified; E66.9 Obesity, unspecified

== ENCOUNTER → 2021-03-25 | Outpatient (CLI) | payer OTHER ==
--- NOTE | 2021-03-27 07:16 | REP ---
INDICATION: LEFT UPPER EXT ARTERIAL THROMBISIS COMPARISON: None available TECHNIQUE: Real time mar scale and color Doppler ultrasound examination using linear high-frequency transducer. FINDINGS: Nonocclusive echogenic material suggesting residual thrombus is identified in the proximal radial and ulnar arteries which may be related to the given history of prior thrombectomy (no prior examinations are currently available for comparison). Monophasic wave patterns noted through the brachial, radial and ulnar arteries may reflect nonvisualized upstream stenosis. No obvious identifiable occlusion appreciated. Subclavian artery: 107.6 cm/sec triphasic Axillary artery (proximal): 128 cm/sec triphasic Axillary artery (distal): 90.8 cm/sec triphasic Brachial artery (proximal): 105.5 cm/sec monophasic Brachial artery (distal): 121.8 cm/sec monophasic Radial artery (proximal): 56.9 cm/sec monophasic Radial artery (distal): 25.9 cm/sec monophasic Ulnar artery (proximal): 122.7 cm/sec monophasic Ulnar artery (distal): 63.7 cm/sec monophasic IMPRESSION: 1. Presumed residual nonocclusive thrombus in the radial and ulnar arteries. 2. Monophasic wave patterns may reflect occult upstream area of stenosis not visualized by current ultrasound examination. <Electronically signed by Josue Crocker > 03/27/21 [id number]
== END ==
LOC: M RAD 14:36
DX: I74.2 Embolism and thrombosis of arteries of the upper extremities (principal)

== ENCOUNTER → 2021-07-11 | Outpatient (CLI) | payer OTHER ==
[~2021-07-11] MED LIST changes: +ERGO500029; -VITA50005
--- NOTE | 2021-07-12 10:17 | REP ---
INDICATION: ARTERIAL THROMBOSIS COMPARISON: 03/25/2021 TECHNIQUE: Real time B-mode and Doppler ultrasound examination of the left upper extremity using linear high-frequency transducer. FINDINGS: Thrombus is again identified within the proximal radial and ulnar arteries similar to prior examination. Triphasic wave patterns are noted within the subclavian and proximal axillary artery followed by monophasic wave patterns throughout the remainder of the upper extremity raising the possibility of occult area of stenosis. Findings are not significantly changed when compared to prior examination. PEAK SYSTOLIC VELOCITIES (CM/SEC) Left subclavian artery: 134.5 Axillary artery (proximal): 89.9 Axillary artery (distal): 81.5 Brachial artery (proximal): 95.5 Brachial artery (distal): 93.7 Radial artery (proximal): 145-47 Radial artery (distal): 50.1 Ulnar artery (proximal): 90.6 Ulnar artery (distal): 75.9 IMPRESSION: Findings are not significantly changed from prior examination and again demonstrate thrombus is within the radial and ulnar arteries as well as monophasic wave patterns distal to the axillary artery raising the possibility of occult stenosis. Consider follow-up MRA of the upper extremity or conventional angiogram study. <Electronically signed by Josue Crocker > 07/12/21 [id number]
== END ==
LOC: M RAD 14:52
PROVIDERS: ATTEND Internal Medicine Hematology & Oncology
DX: I74.2 Embolism and thrombosis of arteries of the upper extremities (principal)

== ENCOUNTER → 2021-07-21 | Outpatient (CLI) | payer OTHER ==
--- NOTE | 2021-07-21 12:26 | REP ---
INDICATION: ENLARGED LYMPH NODES. COMPARISON: 04/15/2020 TECHNIQUE: Real-time sonographic evaluation of the neck soft tissues FINDINGS: There is no lymphadenopathy. The largest node on the right measures 6 mm and the largest node on the left has a maximal dimension of 1.5 cm. IMPRESSION: No evidence of lymphadenopathy. Contrast-enhanced CT of the neck remains the gold standard for imaging neck masses. <Electronically signed by Sudhir Kimbrough > 07/21/21 [id number]
== END ==
LOC: M RAD 11:58
PROVIDERS: ATTEND Otolaryngology
DX: I89.0 Lymphedema, not elsewhere classified (principal)

== ENCOUNTER → 2021-10-20 | Outpatient (REF) | payer OTHER ==
[2021-10-20 15:00] LABS: CLOSTRIDIUM DIFFICILE PCR NEGATIVE (NEGATIVE)
== END ==
LOC: M LAB REF 13:02
PROVIDERS: ATTEND Internal Medicine Gastroenterology
DX: K51.80 Other ulcerative colitis without complications (principal)

== ENCOUNTER → 2021-12-15 | Outpatient (CLI) | payer OTHER ==
[~2021-12-15] MED LIST changes: +ATOR40TA75 PO; +ELIQ5TAB PO; +MESA400C2 PO
== END ==
LOC: M LABSMTC 10:38
PROVIDERS: ATTEND Anesthesiology
DX: Z01.818 Encounter for other preprocedural examination (principal); Z11.52 Encounter for screening for COVID-19

== ENCOUNTER 2021-12-20 06:51 | Day surgery (SDC) | payer OTHER ==
[~2021-12-20] VITALS: Ht 175.3 cm; Wt 113.4 kg
[~2021-12-20 06:51] MED LIST changes: +LIDOCAINE 2% 100MG/5ML SDV (FOR ANES.) As Ordered ONE; +NS 1,000 ML IV ONE; +propofoL 200 MG/20 ML VIAL As Ordered ONE
== END 2021-12-20 08:16 | disposition home or self-care (01) ==
LOC: M OPP 06:51
PROVIDERS: ATTEND Internal Medicine Gastroenterology
DX: K51.50 Left sided colitis without complications (principal); K52.9 Noninfective gastroenteritis and colitis, unspecified; K64.8 Other hemorrhoids; Z79.899 Other long term (current) drug therapy; Z87.891 Personal history of nicotine dependence; Z86.718 Personal history of other venous thrombosis and embolism

== ENCOUNTER → 2022-09-22 | Outpatient (REF) | payer OTHER ==
[~2022-09-22] MED LIST changes: -LIDOCAINE 2% 100MG/5ML SDV (FOR ANES.) As Ordered ONE; -NS 1,000 ML IV ONE; -propofoL 200 MG/20 ML VIAL As Ordered ONE
[2022-09-22 17:45] LABS: BASO # 0.1 10^3/uL (0.0-0.2); BASO % 0.5 % (0.0-1.0); EOS # 0.4 10^3/uL (0.0-0.5); EOS % 4.3 % (0.0-3.0); HEMATOCRIT 45.5 % (42.0-52.0); HEMOGLOBIN 14.5 g/dl (13.5-17.5); LYMPH # 2.7 10^3/uL (1.5-5.0); LYMPH % 26.8 % (24.0-44.0); MEAN CORPUSCULAR HEMOGLOBIN 28.3 pg (27.0-33.0); MEAN CORPUSCULAR HGB CONC 31.9 g/dl (32.0-36.5); MEAN CORPUSCULAR VOLUME 88.9 fl (80.0-96.0); MONO % 9.5 % (2.0-8.0); NEUTROPHILS # 5.8 10^3/uL (1.5-8.5); NEUTROPHILS % 57.6 % (36.0-66.0); PLATELET COUNT, AUTOMATED 301 10^3/uL (150-450); RED BLOOD COUNT 5.12 10^6/uL (4.30-6.10); WHITE BLOOD COUNT 10.1 10^3/uL (4.0-10.0)
[2022-09-22 18:30] LABS: BLOOD UREA NITROGEN 20 MG/DL (7-18); CALCIUM LEVEL 9.6 MG/DL (8.8-10.2); CARBON DIOXIDE LEVEL 28 MEQ/L (21-32); CHLORIDE LEVEL 104 MEQ/L (98-107); CREATININE FOR GFR 1.08 MG/DL (0.70-1.30); GLOMERULAR FILTRATION RATE > 60.0 (>49); GLUCOSE, FASTING 89 MG/DL (70-100); NT-PRO BNP 16 PG/ML (<125); POTASSIUM SERUM 4.2 MEQ/L (3.5-5.1); SODIUM LEVEL 137 MEQ/L (136-145)
[2022-09-22 19:50] LABS: HEMOGLOBIN A1c 5.8 %
== END ==
LOC: M LAB REF 16:59
PROVIDERS: ATTEND Nurse Practitioner Family
DX: R06.00 Dyspnea, unspecified (principal)

== ENCOUNTER → 2022-11-15 | Outpatient (REF) | payer OTHER ==
[2022-11-15 13:11] LABS: BASO # 0.1 10^3/uL (0.0-0.2); BASO % 0.7 % (0.0-1.0); EOS # 0.4 10^3/uL (0.0-0.5); EOS % 4.8 % (0.0-3.0); HEMATOCRIT 47.4 % (42.0-52.0); HEMOGLOBIN 14.8 g/dl (13.5-17.5); LYMPH # 2.7 10^3/uL (1.5-5.0); LYMPH % 34.9 % (24.0-44.0); MEAN CORPUSCULAR HEMOGLOBIN 27.9 pg (27.0-33.0); MEAN CORPUSCULAR HGB CONC 31.2 g/dl (32.0-36.5); MEAN CORPUSCULAR VOLUME 89.4 fl (80.0-96.0); MONO # 0.7 10^3/uL (0.0-0.8); MONO % 8.6 % (2.0-8.0); NEUTROPHILS # 3.8 10^3/uL (1.5-8.5); NEUTROPHILS % 49.4 % (36.0-66.0); PLATELET COUNT, AUTOMATED 258 10^3/uL (150-450); WHITE BLOOD COUNT 7.6 10^3/uL (4.0-10.0)
[2022-11-15 13:26] LABS: HEMOGLOBIN A1c 5.6 % (4.0-6.0)
[2022-11-15 13:36] LABS: ALBUMIN 3.7 G/DL (3.2-5.2); ALKALINE PHOSPHATASE 80 U/L (46-116); ALT/SGPT 55 U/L (7.0-40); AST/SGOT 29 U/L (<34); BILIRUBIN,TOTAL 0.4 MG/DL (0.3-1.2); BLOOD UREA NITROGEN 21 MG/DL (9-23); CALCIUM LEVEL 9.2 MG/DL (8.3-10.6); CARBON DIOXIDE LEVEL 24 MMOL/L (20-31); CHLORIDE LEVEL 106 MMOL/L (98-107); CHOLESTEROL LEVEL 121 MG/DL (<200); GLOMERULAR FILTRATION RATE > 60.0 (>49); GLUCOSE, FASTING 121 MG/DL (74-106); HDL CHOLESTEROL 34.5 MG/DL (>40); LDL CHOLESTEROL 69.3 MG/DL (<100); NON-HDL-C 87 MG/DL; POTASSIUM SERUM 4.7 MMOL/L (3.5-5.1); PROSTATIC SPECIFIC AG MONITOR 1.23 NG/ML (< 4.00); SODIUM LEVEL 142 MMOL/L (136-145); TOTAL PROTEIN 6.8 G/DL (5.7-8.2); TRIGLYCERIDES LEVEL 86 MG/DL (<150)
== END ==
LOC: M LAB REF 12:31
PROVIDERS: ATTEND Nurse Practitioner Family
DX: R06.00 Dyspnea, unspecified (principal)

== ENCOUNTER → 2022-11-16 | Outpatient (CLI) | payer OTHER | LOC: M CARPUL 09:28 | PROVIDERS: ATTEND Nurse Practitioner Family | DX: R01.1 Cardiac murmur, unspecified (principal) ==

== ENCOUNTER → 2023-07-18 | Outpatient (REF) | payer OTHER ==
[2023-07-18 14:49] LABS: IRON (FE) 81 UG/DL (65-175)
[2023-07-18 14:50] LABS: ALBUMIN 3.7 G/DL (3.2-5.2); ALKALINE PHOSPHATASE 64 U/L (46-116); ALT/SGPT 76 U/L (7.0-40); AST/SGOT 35 U/L (<34); BILIRUBIN,TOTAL 0.9 MG/DL (0.3-1.2); BLOOD UREA NITROGEN 22 MG/DL (9-23); CALCIUM LEVEL 9.3 MG/DL (8.3-10.6); CARBON DIOXIDE LEVEL 27 MMOL/L (20-31); CHLORIDE LEVEL 106 MMOL/L (98-107); CHOLESTEROL LEVEL 130 MG/DL (<200); CHOLESTEROL RISK RATIO 4.01 (<5); CREATININE FOR GFR 0.78 MG/DL (0.70-1.30); GLOMERULAR FILTRATION RATE > 60.0 (>49); GLUCOSE, FASTING 109 MG/DL (74-106); HDL CHOLESTEROL 32.4 MG/DL (>40); LDL CHOLESTEROL 77.2 MG/DL (<100); NON-HDL-C 97.6 MG/DL; POTASSIUM SERUM 4.5 MMOL/L (3.5-5.1); SODIUM LEVEL 140 MMOL/L (136-145); TOTAL IRON BINDING CAPACITY 337 UG/DL (250-425); TOTAL PROTEIN 6.9 G/DL (5.7-8.2); TRIGLYCERIDES LEVEL 102 MG/DL (<150)
[2023-07-18 14:51] LABS: FERRITIN 32.4 NG/ML (10.5-307.3); HEMOGLOBIN A1c 6.2 % (4.0-6.0)
[2023-07-18 14:52] LABS: THYROID STIMULATING HORMONE 1.098 uIU/ML (0.55-4.78)
== END ==
LOC: M LAB REF 12:37
PROVIDERS: ATTEND Pediatrics
DX: E78.5 Hyperlipidemia, unspecified (principal); E55.9 Vitamin D deficiency, unspecified; K51.90 Ulcerative colitis, unspecified, without complications

== ENCOUNTER → 2024-01-11 | Outpatient (REF) | payer OTHER ==
[2024-01-11 17:47] LABS: BASO % 0.5 % (0.0-1.0); EOS # 0.1 10^3/uL (0.0-0.5); EOS % 1.1 % (0.0-3.0); HEMATOCRIT 46.2 % (42.0-52.0); LYMPH # 1.9 10^3/uL (1.5-5.0); LYMPH % 25.5 % (24.0-44.0); MEAN CORPUSCULAR HEMOGLOBIN 28.3 pg (27.0-33.0); MEAN CORPUSCULAR HGB CONC 32.5 g/dl (32.0-36.5); MEAN CORPUSCULAR VOLUME 87.2 fl (80.0-96.0); MONO # 0.5 10^3/uL (0.0-0.8); NEUTROPHILS # 4.9 10^3/uL (1.5-8.5); PLATELET COUNT, AUTOMATED 273 10^3/uL (150-450); WHITE BLOOD COUNT 7.5 10^3/uL (4.0-10.0)
[2024-01-11 18:06] LABS: HEMOGLOBIN A1c 5.7 % (4.0-6.0)
[2024-01-11 18:08] LABS: ALBUMIN 3.8 G/DL (3.2-5.2); BILIRUBIN,DIRECT 0.2 MG/DL (<0.4); BILIRUBIN,TOTAL 0.7 MG/DL (0.3-1.2); TOTAL PROTEIN 7.3 G/DL (5.7-8.2)
== END ==
LOC: M LAB REF 17:05
PROVIDERS: ATTEND Pediatrics
DX: Z79.01 Long term (current) use of anticoagulants (principal); K76.0 Fatty (change of) liver, not elsewhere classified; R73.03 Prediabetes

== ENCOUNTER → 2024-01-23 | Outpatient (CLI) | payer OTHER | LOC: M SOG 07:50 | PROVIDERS: ATTEND Physician Assistant | DX: M25.532 Pain in left wrist (principal) ==

== ENCOUNTER → 2024-02-28 | Outpatient (CLI) | payer OTHER | LOC: M SOG 07:58 | PROVIDERS: ATTEND Orthopaedic Surgery | DX: M25.532 Pain in left wrist (principal) ==

== ENCOUNTER → 2024-03-03 | Outpatient (CLI) | payer OTHER ==
[2024-03-03 09:30] LABS: BASO # 0.1 10^3/uL (0.0-0.2); BASO % 0.8 % (0.0-1.0); EOS # 0.2 10^3/uL (0.0-0.5); EOS % 2.3 % (0.0-3.0); HEMATOCRIT 46.4 % (42.0-52.0); LYMPH # 2.1 10^3/uL (1.5-5.0); LYMPH % 27.6 % (24.0-44.0); MEAN CORPUSCULAR HEMOGLOBIN 28.5 pg (27.0-33.0); MEAN CORPUSCULAR HGB CONC 32.3 g/dl (32.0-36.5); MONO # 0.6 10^3/uL (0.0-0.8); MONO % 8.3 % (2.0-8.0); NEUTROPHILS # 4.5 10^3/uL (1.5-8.5); NEUTROPHILS % 59.8 % (36.0-66.0); PLATELET COUNT, AUTOMATED 242 10^3/uL (150-450); RED BLOOD COUNT 5.27 10^6/uL (4.30-6.10); WHITE BLOOD COUNT 7.5 10^3/uL (4.0-10.0)
[2024-03-03 09:43] LABS: INR 1.01
[2024-03-03 09:55] LABS: ALBUMIN 3.5 G/DL (3.2-5.2); ALKALINE PHOSPHATASE 77 U/L (46-116); ALT/SGPT 80 U/L (7.0-40); AST/SGOT 30 U/L (<34); BILIRUBIN,TOTAL 0.6 MG/DL (0.3-1.2); BLOOD UREA NITROGEN 17 MG/DL (9-23); CALCIUM LEVEL 8.9 MG/DL (8.3-10.6); CARBON DIOXIDE LEVEL 31 MMOL/L (20-31); CHLORIDE LEVEL 104 MMOL/L (98-107); CREATININE FOR GFR 0.67 MG/DL (0.70-1.30); GLOMERULAR FILTRATION RATE > 60.0 (>49); GLUCOSE, FASTING 117 MG/DL (74-106); POTASSIUM SERUM 4.6 MMOL/L (3.5-5.1); SODIUM LEVEL 139 MMOL/L (136-145); TOTAL PROTEIN 6.9 G/DL (5.7-8.2)
[2024-03-03 10:07] LABS: HEMOGLOBIN A1c 5.6 % (4.0-6.0)
== END ==
LOC: M LAB 08:59
PROVIDERS: ATTEND Orthopaedic Surgery
DX: G56.02 Carpal tunnel syndrome, left upper limb (principal)

== ENCOUNTER 2024-03-25 09:23 | Day surgery (SDC) | payer OTHER ==
[~2024-03-25] VITALS: Ht 175.3 cm; Wt 125.9 kg
[~2024-03-25 09:23] MED LIST changes: +ELIQ2.5T PO; +FURO20TA2 PO; +MIDAZOLAM INJ 2MG/2ML VIAL As Ordered ONE; +VITA200032 PO; +fentaNYL 100 MCG/2 ML INJECTION As Ordered ONE; +propofoL 500 MG/50 ML VIAL As Ordered ONE
[2024-03-25] MEDS ORDERED: KETOROLAC 60MG 2ML VIAL As Ordered ONE (10:49)
[2024-03-25] MEDS ORDERED: ACETAMINOPHEN 1000MG 100ML IV BAG As Ordered ONE (10:49)
[2024-03-25] MEDS: BACITRACIN OINTMENT 30GM TUBE As Ordered ONE (11:42)
[2024-03-25 11:55] VITALS: BP 114/57; TEMP 97.7; O2SAT 96
== END 2024-03-25 12:25 | disposition home or self-care (01) ==
LOC: M SDC 09:23
PROVIDERS: ATTEND Orthopaedic Surgery
DX: G56.02 Carpal tunnel syndrome, left upper limb (principal); E78.00 Pure hypercholesterolemia, unspecified; R60.0 Localized edema; Z86.718 Personal history of other venous thrombosis and embolism; Z95.828 Presence of other vascular implants and grafts; Z79.899 Other long term (current) drug therapy; Z79.01 Long term (current) use of anticoagulants
CPT/HCPCS: 64721; J0131; J0665; J1885; J2250; J3010

== ENCOUNTER → 2024-06-02 | Outpatient (REF) | payer OTHER ==
[~2024-06-02] MED LIST changes: -MIDAZOLAM INJ 2MG/2ML VIAL As Ordered ONE; -fentaNYL 100 MCG/2 ML INJECTION As Ordered ONE; -propofoL 500 MG/50 ML VIAL As Ordered ONE
[2024-06-02 14:56] LABS: CREATININE, URINE 178.1 MG/DL
[2024-06-02 14:57] LABS: MAU/CREAT RATIO 7.8 MCG/MG (0.0-30.0)
[2024-06-02 18:14] LABS: HEMOGLOBIN A1c 5.7 % (4.0-6.0)
[2024-06-02 18:53] LABS: PSA SCREENING 1.34 NG/ML (< 4.00)
[2024-06-02 18:54] LABS: BLOOD UREA NITROGEN 13 MG/DL (9-23); CALCIUM LEVEL 9.3 MG/DL (8.3-10.6); CARBON DIOXIDE LEVEL 27 MMOL/L (20-31); CHLORIDE LEVEL 106 MMOL/L (98-107); CHOLESTEROL LEVEL 210 MG/DL (<200); CHOLESTEROL RISK RATIO 6.56 (<5); CREATININE FOR GFR 0.67 MG/DL (0.70-1.30); GLOMERULAR FILTRATION RATE > 60.0 (>49); GLUCOSE, FASTING 105 MG/DL (74-106); LDL CHOLESTEROL 141.4 MG/DL (<100); POTASSIUM SERUM 4.6 MMOL/L (3.5-5.1); SODIUM LEVEL 139 MMOL/L (136-145); TRIGLYCERIDES LEVEL 183 MG/DL (<150)
[2024-06-02 18:57] LABS: THYROID STIMULATING HORMONE 1.118 uIU/ML (0.55-4.78)
== END ==
LOC: M LAB REF 12:32
PROVIDERS: ATTEND Pediatrics
DX: R03.0 Elevated blood-pressure reading, without diagnosis of hypertension (principal); K76.0 Fatty (change of) liver, not elsewhere classified; Z12.5 Encounter for screening for malignant neoplasm of prostate; R73.03 Prediabetes

== ENCOUNTER 2024-06-16 06:54 | Day surgery (SDC) | payer OTHER ==
[~2024-06-16] VITALS: Ht 175.3 cm; Wt 123.8 kg
[~2024-06-16 06:54] MED LIST changes: +NS 1,000 ML IV ONE
[2024-06-16] MEDS ORDERED: propofoL 200 MG/20 ML VIAL As Ordered ONE (07:14)
[2024-06-16] MEDS ORDERED: LIDOCAINE 2% 100MG/5ML SDV (FOR ANES.) As Ordered ONE (07:15)
[2024-06-16 07:49] VITALS: TEMP 97.8
[2024-06-16 08:05] VITALS: BP 123/60; O2SAT 96
== END 2024-06-16 08:09 | disposition home or self-care (01) ==
LOC: M OPP 06:54
PROVIDERS: ATTEND Internal Medicine Gastroenterology
DX: K51.30 Ulcerative (chronic) rectosigmoiditis without complications (principal); E78.00 Pure hypercholesterolemia, unspecified; Z79.01 Long term (current) use of anticoagulants; Z79.899 Other long term (current) drug therapy; Z90.89 Acquired absence of other organs; Z86.718 Personal history of other venous thrombosis and embolism

== ENCOUNTER → 2025-01-08 | Outpatient (CLI) | payer MEDICARE, OTHER ==
[~2025-01-08] MED LIST changes: -NS 1,000 ML IV ONE
== END ==
LOC: M RAD 15:03
PROVIDERS: ATTEND Pediatrics
DX: M54.2 Cervicalgia (principal)

== ENCOUNTER 2025-02-04 13:39 | Outpatient (RCR) | payer MEDICARE, OTHER | END 2025-02-09 | LOC: M PT 13:39 | PROVIDERS: ATTEND Pediatrics | DX: M54.2 Cervicalgia (principal) ==

== ENCOUNTER 2025-02-11 13:47 | Outpatient (RCR) | payer MEDICARE, OTHER | END 2025-03-11 | LOC: M PT 13:47 | PROVIDERS: ATTEND Pediatrics | DX: M54.2 Cervicalgia (principal) ==

== ENCOUNTER → 2025-02-23 | Outpatient (REF) | payer MEDICARE, OTHER ==
[2025-02-23 12:53] LABS: ALBUMIN 3.5 G/DL (3.2-5.2); ALKALINE PHOSPHATASE 73 U/L (40-129); ALT/SGPT 34 U/L (7.0-40); AST/SGOT 17 U/L (<34); BILIRUBIN,DIRECT 0.2 MG/DL (<0.4); BILIRUBIN,TOTAL 0.5 MG/DL (0.3-1.2); BLOOD UREA NITROGEN 16 MG/DL (9-23); CALCIUM LEVEL 9.2 MG/DL (8.3-10.6); CARBON DIOXIDE LEVEL 27 MMOL/L (20-31); CHLORIDE LEVEL 106 MMOL/L (98-107); CHOLESTEROL LEVEL 101 MG/DL (<200); CREATININE FOR GFR 0.62 MG/DL (0.70-1.30); GLOMERULAR FILTRATION RATE > 90.0 (>49); GLUCOSE, FASTING 103 MG/DL (74-106); HDL CHOLESTEROL 37.4 MG/DL (>40); NON-HDL-C 63.6 MG/DL; POTASSIUM SERUM 4.4 MMOL/L (3.5-5.1); SODIUM LEVEL 141 MMOL/L (136-145); THYROID STIMULATING HORMONE 0.708 uIU/ML (0.55-4.78); TOTAL 25(OH) VITAMIN D 17.3 NG/ML (20.0-100.0); TRIGLYCERIDES LEVEL 73 MG/DL (<150)
[2025-02-23 13:29] LABS: HEMOGLOBIN A1c 5.7 % (4.0-6.0)
== END ==
LOC: M LAB REF 12:24
PROVIDERS: ATTEND Pediatrics
DX: R03.0 Elevated blood-pressure reading, without diagnosis of hypertension (principal); E78.5 Hyperlipidemia, unspecified; R73.03 Prediabetes; E55.9 Vitamin D deficiency, unspecified; R94.5 Abnormal results of liver function studies

== ENCOUNTER → 2025-08-12 | Outpatient (REF) | payer MEDICARE, OTHER, MEDICAID ==
[2025-08-12 12:13] LABS: PSA SCREENING 1.64 NG/ML (< 4.00)
[2025-08-12 12:14] LABS: CALCIUM LEVEL 9.1 MG/DL (8.3-10.6); CARBON DIOXIDE LEVEL 27 MMOL/L (20-31); CHLORIDE LEVEL 104 MMOL/L (98-107); CHOLESTEROL LEVEL 139 MG/DL (<200); CHOLESTEROL RISK RATIO 3.89 (<5); CREATININE FOR GFR 0.74 MG/DL (0.70-1.30); GLOMERULAR FILTRATION RATE > 90.0 (>49); LDL CHOLESTEROL 83.7 MG/DL (<100); NON-HDL-C 103.3 MG/DL; POTASSIUM SERUM 4.5 MMOL/L (3.5-5.1); SODIUM LEVEL 135 MMOL/L (136-145); TRIGLYCERIDES LEVEL 98 MG/DL (<150)
[2025-08-12 12:50] LABS: ESTIMATED AVERAGE GLUCOSE 126.0 MG/DL (60-110)
[2025-08-12 13:17] LABS: CREATININE, URINE 125.8 MG/DL; MALB URINE SIEMENS 13.0 MG/L; MAU/CREAT RATIO 10.3 MCG/MG (0.0-30.0)
== END ==
LOC: M LAB REF 11:42
PROVIDERS: ATTEND Pediatrics
DX: I10 Essential (primary) hypertension (principal); Z12.5 Encounter for screening for malignant neoplasm of prostate; E78.5 Hyperlipidemia, unspecified; R73.03 Prediabetes
CPT/HCPCS: 80048; 80061; 82043; 83036; G0103